=== PATIENT | female | born 1960 | race Caucasian/White ===

== ENCOUNTER 2023-02-10 07:47 | Emergency (ER) | payer OTHER, SELFPAY ==
[2023-02-10 07:56] VITALS: BP 148/92; PULSE 83; RESP 18; TEMP 37; O2SAT 99
--- NOTE | 2023-02-10 08:17 | ED_ITS ---
HPI - Dental/Oral General Chief complaint: Dental/Oral Stated complaint: thinks tooth is infected Time Seen by Provider: 02/10/23 08:04 History of Present Illness HPI Narrative: Patient is a 62-year-old female who presents ER with right lower jaw swelling. Worsening over the last 2 days. Associated pain. No drainage. No fevers chills or sweats. No difficulty breathing or swallowing. Related Data Allergies Allergy/AdvReac Type Severity Reaction Status Date / Time allantoin [From Orajel] Allergy Swelling Verified 02/10/23 08:03 benzalkonium chloride Allergy Swelling Verified 02/10/23 08:03 [From Orajel] benzocaine [From Orajel] Allergy Swelling Verified 02/10/23 08:03 carbamide peroxide Allergy Swelling Verified 02/10/23 08:03 [From Orajel] tramadol Allergy Depression Verified 02/10/23 08:03 zinc chloride [From Orajel] Allergy Swelling Verified 02/10/23 08:03 Review of Systems Constitutional: Constitutional: Denies chills and Denies fever(s) ENT: Comments: Right lower jaw swelling and pain. Positive dental pain. [facility] Past Medical History Medical History (Updated 02/10/23 @ 17:06 by Tex Hernandez MD) Diabetes Hyperlipidemia Hypertension Exam Narrative: GENERAL: Well-appearing, well-nourished, and in no acute distress. HEAD: Normocephalic, atraumatic. ENT: Right lower jaw swelling with tenderness around tooth 30. No drainable abscess. Mucous membranes moist. Normal posterior oropharynx. NECK: Supple. SKIN: Warm, dry, no rash. NEURO: Alert and oriented x3. PSYCH: Normal mood and affect. Course Course Emergency Course: Discharge home with antibiotic and pain medication Vital Signs Vital signs: Vital Signs Temperature 98.6 F 02/10/23 07:56 Pulse Rate 83 02/10/23 07:56 Respiratory Rate 18 02/10/23 07:56 Blood Pressure 148/92 H 02/10/23 07:56 Pulse Oximetry 99 02/10/23 07:56 Oxygen Delivery Room Air 02/10/23 07:56 Temperature 98.6 F 02/10/23 07:56 Pulse Rate 83 02/10/23 07:56 Respiratory Rate 18 02/10/23 07:56 Blood Pressure 148/92 H 02/10/23 07:56 Pulse Oximetry 99 02/10/23 07:56 Oxygen Delivery Room Air 02/10/23 07:56 Discharge Plan Discharge Clinical Impression: Toothache Patient Disposition: Home, Self-Care Condition: Stable Instructions: Antibiotic Form, Toothache (ED) Additional Instructions: Return to the ER if you cannot breathe, you cannot swallow, or you have additional concerns. Follow-up with your dentist for definitive evaluation and treatment. Prescriptions: New amoxicillin-pot clavulanate 875-125 mg tablet 1 tablet PO Q12H Qty: 20 0RF oxycodone-acetaminophen [Percocet] 5-325 mg tablet 1 tablet PO Q6H PRN (Reason: pain) Qty: 10 0RF Follow-up/Referrals: UNKNOWN,DOCTOR [Non-Staff] - 1 Week Stand Alone Forms: Work/School Release IP
== END 2023-02-10 08:23 | disposition home or self-care (01) ==
LOC: ANHED 08:19
PROVIDERS: Emergency Provider Emergency Medicine; PCP Internal Medicine
DX: K08.89 Other specified disorders of teeth and supporting structures (principal); I10 Essential (primary) hypertension; E11.9 Type 2 diabetes mellitus without complications; E78.5 Hyperlipidemia, unspecified
CPT/HCPCS: 99283

== ENCOUNTER 2023-09-18 09:45 | Outpatient (RCR) | payer OTHER, SELFPAY ==
[2023-05-24 15:55] VITALS: BP 112/68; PULSE 70; RESP 18; O2SAT 97
== END 2023-09-18 23:59 | disposition home or self-care (01) ==
LOC: ANHCPREHAB 09:45
PROVIDERS: PCP Internal Medicine
DX: Z95.5 Presence of coronary angioplasty implant and graft (principal)
CPT/HCPCS: 93798

== ENCOUNTER 2023-11-13 10:00 | Outpatient (RCR) | payer OTHER, SELFPAY ==
[2023-09-21 00:03] VITALS: BP 112/68; PULSE 70; RESP 18; O2SAT 97
== END 2023-11-13 15:20 | disposition home or self-care (01) ==
LOC: ANHCPREHAB 10:00
PROVIDERS: PCP Internal Medicine
DX: Z95.5 Presence of coronary angioplasty implant and graft (principal)
CPT/HCPCS: 93798

== ENCOUNTER 2024-09-17 12:05 | Emergency (ER) | payer OTHER, SELFPAY ==
[2024-09-17 12:01] VITALS: BP 151/83; PULSE 76; RESP 16; TEMP 36.8; O2SAT 98
--- NOTE | 2024-09-17 12:43 | PC.NURSE ---
Pt used call light to state her nose had begun bleeding again. Nasal clamp was applied by this RN. Pt requested for BP to be rechecked, BP was rechecked per pts request.
[2024-09-17 12:44] VITALS: BP 134/75
--- OUTSIDE RECORDS SUMMARY | 2024-09-17 13:12 | XMS_ITS | Encounter Summary ---
Author Organization [facility] Address [address] [place] [address] Care Team Providers Care Fun House Attendant Name Role Phone Becky Mccarthy MD Primary Care Provider [phone] Alok Andrew MD Unavailable [phone] Encounter Details Date Type Department Care Team (Late st Contact Info) Description 04/02/2023 Telephone [facility] Cardiac Windows Admin [address] [place] [address] Narciso Alfonso, RN Social History Tobacco Use Types Packs/Day Years Used Date Smoking Tobacco: Former Cigarettes 0.3 25 AUDIT-C Answer Date Recorded Q1: How often do you have a drink containing alc ohol? Monthly or less 03/28/2023 Q2: How many drinks containi ng alcohol do you have on a typical day when you are drinking? 1 or 2 03/28/2023 Q3: How often do you have si x or more drinks on one occasion? Never 03/28/2023 Personal Safety Answer Date Recorded Have you ever been in or are you currently in a harmful physical or emotional relationship or is someone making you feel afraid or unsafe? 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 A copy of the angiography diagram, post PCI EKG, stent card,care notes handout on the angioplasty/PCI, heart healthy diet, and cardiac rehab pamphlet is being mailed to the patient. The procedure, coronary anatomy, stent placement, and/or other findings discussed. Cardiac rehab discussed, DAPT discussed, importance of compliance, and instructions that only the plugger man can discontinue to hold the medication were given. Typical and atypical signs and symptoms of angina were discussed, and patient was instructed to utilize 911 and EMS services should they occur. Instructed to keep the stent card in their wallet or to keep with them at all times. Time was given for questions. Patient voiced understanding. documented in this encounter Plan of Treatment Not on file documented as of this encounter Visit Diagnoses Not on filedocumented in this encounter Care Teams Fun House Attendant Relationship Specialty Start Date End Date Becky Mccarthy MD [address] [place] [address] PCP - General Internal Medicine 09/20/22 Alok Andrew MD [address] [place] [address] Referring Physician Ophthalmology 11/06/23 documented as of this encounter
--- OUTSIDE RECORDS SUMMARY | 2024-09-17 13:13 | XMS_ITS | Referral Summary ---
Author Organization [facility] Address [address] [place] [address] Care Team Providers Care Cigar Maker Name Role Phone Becky Mccarthy MD Primary Care Provider [phone] Alok Andrew MD Unavailable [phone] Allergies Active Allergy Reactions Criticality Noted Date Comments Rosuvastatin Muscle pain Medium 08/19/2024 Tramadol Mental status changes High 12/31/2022 Medications baclofen (LIORESAL) 10 mg tablet Take 1 tablet (10 mg total) by mouth 4 (four) times a day as needed 11/15/2022 Active lisinopriL (PRINIVIL,ZESTR IL) 20 mg tablet Take 1 tablet (20 mg total) by mouth daily 11/23/2022 Active metFORMIN XR (GLUCOPHAGE XR) 750 mg 24 hr tablet Take 1 tablet (750 mg total) by mouth 2 (two) times a day 11/23/2022 Active metoprolol XL (TOPROL-XL) 25 mg extended release tablet Take 1 tablet (25 mg total) by mouth daily 11/23/2022 Active potassium chloride ER 20 mEq CR tablet Take 1 tablet (20 mEq total) by mouth daily 11/16/2022 Active rosuvastatin (CRESTOR) 40 mg tablet Take 1 tablet (40 mg total) by mouth nightly 11/23/2022 Active allopurinoL (ZYLOPRIM) 100 mg tablet Take 1 tablet (100 mg total) by mouth daily 11/23/2022 Active hydroCHLOROthia zide (HYDRODIURIL) 25 mg tablet Take 1 tablet (25 mg total) by mouth daily Active hydroCHLOROthia zide (MICROZIDE) 12.5 mg capsule Take 1 capsule (12.5 mg total) by mouth As needed for edema Active gabapentin (NEURONTIN) 300 mg capsule Take 2 capsules (600 mg total) by mouth 2 (two) times a day 01/14/2023 Active OneTouch Ultra Test strip daily 03/18/2023 Active OneTouch Ultra2 Meter misc daily 03/18/2023 Active cholecalciferol (VITAMIN D-3) 2000 unit tablet Take 1 tablet every day by oral route as directed. Active OneTouch Delica Plus Lancet 33 gauge misc daily 03/18/2023 Active Eliquis 5 mg tablet TAKE 1 TABLET BY MOUTH TWICE DAILY 180 tablet 1 04/20/2024 Active evolocumab (Repatha SureClick) 140 mg/mL pen injector Inject 1 mL (140 mg total) under the skin every 14 (fourteen) days 6 mL 1 05/18/2024 Active nitroglycerin (NITROSTAT) 0.[address] 1 tablet (0.4 mg total) under the tongue every 5 (five) minutes as needed for chest pain 25 tablet 05/18/2024 Active aspirin 81 mg enteric coated tablet Take 1 tablet (81 mg total) by mouth daily 90 tablet 3 05/18/2024 Active Active Problems Problem Noted Date Diagnosed Date Other thrombophilia 05/18/2024 CAD in [place] artery 03/28/2023 Abnormal stress test 12/31/2022 Essential hypertension, benign 12/31/2022 Mixed hyperlipidemia 12/31/2022 Coronary artery disease of n ative artery of [place] heart with stable angina pectoris 12/31/2022 Paroxysmal atrial fibrillation 12/31/2022 Obesity (BMI 35.0-39.9 without comorbidity) 12/09 Immunizations Immunization Administration Dates Next Due DT 01/12/1995 Influenza, Trivalent, Preservative Free, Intramu scular 02/12/1997 Social History Tobacco Use Types Packs/Day Years Used Date Smoking Tobacco: Former Cigarettes 0.3 25 Tobacco Cessation:Counseling Given: Not Answered AUDIT-C Answer Date Recorded Q1: How often [...] on file 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 Gender Identity Not on file Sexual Orientation Not on file Last Filed Vital Signs Vital Sign Reading Time Taken Comments Blood Pressure 134/76 05/18/2024 3:15 PM RAIL CAR MECHANIC Pulse 71 05/18/2024 3:15 PM RAIL CAR MECHANIC Temperature 36.8 C (98.2 F) 03/29/2023 11:14 AM CDT Respiratory Rate 16 03/29/2023 11:14 AM CDT Oxygen Saturation 98% 04/24/2023 9:47 AM RAIL CAR MECHANIC Inhaled Oxygen Concentration - - Weight 89.2 kg (196 lb 9.6 oz) 05/18/2024 3:15 P M RAIL CAR MECHANIC Height 165.1 cm (5' 5 ) 05/18/2024 3:15 PM RAIL CAR MECHANIC Body Mass Index 32.72 05/18/2024 3:15 PM RAIL CAR MECHANIC Plan of Treatment Not on file Medical Devices Implanted Type Area Hospice Rn Device Identifier Shelf Expiration Date Model / Serial / Lot Medtronic Card Vasc Surgery 3.0 X 12mm [place] [facility] Coronary Stent [id number] - [id number] Implanted:Qty: 1 on 03/28/2023 by Los Cole MD at [facility] Medtronic Card Vasc Surgery 02/11/2026 [id number] / / [id number] [employer] Angio-Seal Vip 6fr Closere Device [id number] - [id number] Implanted:Qty: 1 on 03/28/2023 by Los Cole MD at [facility] [employer] 09/08/2023 [id number] / / [id number] Insurance Advance Directives For more information, please contact: [phone] * Full Code (Latest Code Status on File) Date Activated Date Inactivated Comments 03/28/2023 12:36 PM 03/29/2023 6:40 PM Care Teams Cigar Maker Relationship Specialty Start Date End Date Becky Mccarthy MD [address] [place] [address] PCP - General Internal Medicine 09/20/22 Alok Andrew MD [address] [place] [address] Referring Physician Ophthalmology 11/06/23
--- OUTSIDE RECORDS SUMMARY | 2024-09-17 13:13 | XMS_ITS | Data Portability ---
Author Organization [place] - [facility] OFFICE Address [address] [place] [address] Care Team Providers Care Vp Outcomes Name Role Phone FIGUEROA CABALLERO Primary Care Provider Assessment Encounter Date Assessment Date Assessment LastModified by Organization Details LastModified Time 08/24/2020 08/24/2020 Discussed with patient findings, diagnosis, and prognosis. Discussed evaluation and treatment options including risks and benefits with patient, and patient expressed understanding. The following interventions were recommended: heart healthy low-fat, low-sodium diet, continue regular exercise, 20 pound weight loss, monitor and record daily weight, continue current medications, and medical follow-up as noted. [email or web address] Not available 08/23/2020 09:37:14 06/14/2021 06/14/2021 Discussed with patient findings, diagnosis, and prognosis. Discussed evaluation and treatment options including risks and benefits with patient, and patient expressed understanding. The following interventions were recommended: heart healthy low-fat, low-sodium diet, continue regular exercise, 20 pound weight loss, monitor and record daily weight, continue current medications, and medical follow-up as noted. [email or web address] Not available 04/25/2021 16:51:03 08/23/2021 08/23/2021 Discussed with patient findings, diagnosis, and prognosis. Discussed evaluation and treatment options including risks and benefits with patient, and patient expressed understanding. The following interventions were recommended: heart healthy low-fat, low-sodium diet, continue regular exercise, 20 pound weight loss, monitor and record daily weight, continue current medications, and medical follow-up as noted. [email or web address] Not available 08/23/2021 15:30:16 03/14/2022 03/14/2022 Discussed with patient findings, diagnosis, and prognosis. Discussed evaluation and treatment options including risks and benefits with patient, and patient expressed understanding. The following interventions were recommended: heart healthy low-fat, low-sodium diet, avoid strenuous exercise pending completion of cardiovascular evaluation,20 pound weight loss, monitor and record daily weight, continue current medications, and medical follow-up as noted. [email or web address] Not available 03/14/2022 17:34:07 05/30/2022 05/30/2022 Discussed with patient findings, diagnosis, and prognosis. Discussed evaluation and treatment options including risks and benefits with patient, and patient expressed understanding. The following interventions were recommended: heart healthy low-fat, low-sodium diet, avoid strenuous exercise pending completion of cardiovascular evaluation,20 pound weight loss, monitor and record daily weight, continue current medications, and medical follow-up as noted. [email or web address] Not available 05/30/2022 12:06:38 Plan of Treatment Reminders Order Date Submit Date Provider Last Modified By Organization Details Last Modified Time Details Appointments None recorded. Lab None recorded. Referral None recorded. Procedures None recorded. Surgeries None recorded. Imaging None recorded. Medication Orders rosuvastati n 40 mg tablet 2021 [facility] #[id number], [address], [place], [id number], 12:29:14 nitroglycer in 0.4 mg sublingual tablet 2021 [facility] #88262, [address], [place], [id number], 12:29:15 Eliquis 5 mg tablet 2021 [facility] #[id number], [address], [place], [id number], 12:29:14 amlodipine 10 mg tablet 2021 [facility] #49451, [address], [place], [id number], 12:29:15 Repatha SureClick 140 mg/mL subcutaneou s pen injector 2021 [facility] #32977, [address], [place], [place], [id number], 12:29:16 rosuvastati n 40 mg tablet 2021 [facility] #31917, [address], [place], [place], [id number], 17:37:19 metoprolol succinate ER 25 mg tablet,exte nded release 24 hr 2021 [facility] #90840, [address], [place], [place], [id number], 17:37:21 amlodipine 10 mg tablet 2021 [facility] #72027, [address], [place], [place], [id number], 17:37:20 Patient TargetsNo targets recorded. Patient Instructions Encounter Date Encounter Id Patient Instructions Last Modified By Organization Details Last Modified Time 08/24/2020 [id number] sleep apnea: car e instructions [email or web address] Not available 08/24/2020 20:37:09 06/14/2021 [id number] sleep apnea: car e instructions Not available 06/14/2021 16:22:23 dizziness: care instructions [email or web address] Not available 06/14/2021 16:22:23 08/23/2021 [id number] sleep apnea: car e instructions [email or web address] Not available 08/23/2021 16:00:54 dizziness: care instructions Not available 08/23/2021 16:00:54 03/14/2022 [id number] sleep apnea: car e instructions [email or web address] Not available 03/14/2022 17:37:14 dizziness: care instructions [email or web address] Not available 03/14/2022 17:37:13 05/30/2022 [id number] dizziness: care instructions [email or web address] Not available 05/30/2022 12:29:06 sleep apnea: car e instructions [email or web address] Not available 05/30/2022 12:29:07 Reason for Referral None Reported. Results Created Date Observation Date Name Description Value Unit Range Abnormal Flag Note LastModifiedBy Organization Detail LastModifiedTime 08/26/1908/24/2020 elect rocar diogr am No observ ation record ed. [email or web address] Not Available 2020 12:22:25 06/19/19 22 06/14/2021 elect rocar diogr am No observ ation record ed. [email or web address] Not Available 2021 11:35:07 08/03/19 22 08/02/2021 , [facility] ardio gram No observ ation record ed. [facility] [address] [place] [address] Dr Pinedo, [place], [address], 08/05/2021 15:37:50 08/15/19 22 08/02/2021 US, echo ardio gram No observ ation record ed. [email or web address] Not Available 2021 12:14:12 03/15/20 22 03/14/2022 elect rocar diogr am No observ ation record ed. [email or web address] Not Available 2021 14:02:01 04/11/20 22 03/29/2022 exerc ise stres s test No observ ation record ed. [email or web address] Not Available 2021 15:34:46 05/28/20 22 04/06/2022 US, carot id arter y No observ ation record ed. [email or web address] Not Available 2021 12:31:06 Result Notes None recorded. Problems Name Problem SNOMED Code Status Onset Date Resolution Date Notes Provider Name and Address Organization Details Recorded Time Dizzines s 870841278 Active 2021 Khanh garrison [facility] 16:12:38 Ischemic stroke 688567223 Active 2016 Maria Teresa garrison [place] - [facility] 7 14:32:13 Benign hyperten mariusz 13238255 Completed 201606/14/2017 Odetterufina Campuzanos [place], [place] - [facility] 8 09:25:25 Diabetes mellitus 00114653 Completed 201606/14/2017 Odette Campuzanos [place], [place] - [facility] 8 09:25:34 Arthriti s 2673201 Active 2016 Maria Teresa Jackson [place], [place] - [facility] 7 14:34:31 Goiter 0303868 Active 2016 Hala Manuel [place] - [facility] 7 14:34:39 Hypercho lesterol emia 60138608 Completed 201606/14/2017 Odette garrison, [place] - [facility] 8 09:25:28 Disorder of thyroid gland 38718176 Active 2016 [facility], [place] - [facility] 7 10:55:26 Syncope 755928997 Active 2016 [facility] [place] - [facility] 7 10:56:04 Cramp in lower limb 952500074 Active 2016 [facility] [place] [facility] 7 10:56:29 Headache 27497692 Active 2016 [facility] [place] [facility] 7 10:56:38 Chest pain 79153882 Active 2016 [facility] [place] [facility] 7 10:57:00 Excessiv e belching 226083004 Active 2016 [facility] [place] [facility] 7 11:10:40 Palpitat ions 53243968 Active 2016 [facility] [place] [facility] 7 11:38:33 Gastroes ophageal reflux disease 064330775 Active 2016 Celia Maya [place] - [facility] 7 16:31:22 Cerebrov ascular accident 677268937 Active [address] [facility] 7 16:32:04 Dyslipid emia 361959416 Active [address] [facility] 8 09:25:03 Type 2 diabetes mellitus without complica tion 866020744 Active [address] [facility] 8 09:25:12 [facility] hyperten mariusz 53388935 Active 2017 Odette Marie [facility] 8 09:25:22 Paroxysm al atrial fibrilla tion 881353947 Active 2017 Khanh Madrid [facility] 8 18:07:37 Coronary arterios clerosis 25431535 Active 2017 [facility] 12/03/16 : Two-vesse l coronary artery disease, RCA 60-75%. Kate Tristan [facility] 8 11:07:49 Obstruct gracia sleep apnea syndrome 30562527 Active [address] [facility] 0 11:17:18 Problem Notes None recorded. Procedures Surgical History Date Name Laterality Status Provider Name and Address Organization Details Recorded Time Removal of thyroid completed Celia Maya [facility] 11/02/2016 17:03:35 Hysterectomy completed [facility] 11/09/2016 11:03:05 Appendectomy completed [facility] 11/09/2016 11:03:14 Back Surgery completed [facility] 11/09/2016 11:03:27 Imaging Results Imaging Date Name Status LastModified by Organization Details LastModified Time 08/24/2020 electrocardiogram completed [email or web address] Informa tion not available 08/25/2020 12:22:25 06/14/2021 electrocardiogram completed Informa tion not available 06/19/2021 11:35:07 08/02/2021 US, echocardiogram completed [facility] [address], [place], [address], 08/05/2021 15:37:50 08/02/2021 US, echocardiogram completed Inform ation not available 08/14/2021 12:14:12 03/14/2022 electrocardiogram completed Informa tion not available 03/15/2022 14:02:01 03/29/2022 exercise stress test completed ruse Info rmation not available 04/11/2022 15:34:46 04/06/2022 US, carotid artery completed Inform ation not available 05/28/2022 12:31:06 Procedure Notes None recorded. Medical Equipment None Reported. Allergies Allergen ID Allergen Name Allergen Category Reaction Reaction Severity Criticality Documentation Date Start Date Code Code System Note Provider Name and Address Organization Details Recorded Time 4576 tramadol medicatio n Not available Not available Not available 11/30/2016 76137 RxNorm Rossana Day [place], [place] - [facility] 7 12:28:58 Medications Name Sig Start Date Stop Date Status Note LastModified by Organization Details LastModified Time cyclobenz aprine 10 mg tablet TAKE ONE TABLET BY MOUTH TWICE DAILY NEEDED active Not Available Not Available No t Available atorvasta tin 40 mg tablet Take 1 tablet every day by oral route. 12/24 completed Not Available Not Available Not Available atorvasta tin 80 mg tablet TAKE 1 TABLET BY MOUTH AT BEDTIME 04/08 completed pt. no longer takes Not Available Not Available Not Available Tylenol 500 mg capsule Take 2 tablets by oral route as needed. 06/14 completed Not Available Not Available Not Available cefuroxim e axetil 250 mg tablet 08/24 completed pt. no longer takes Not Available Not Available Not Available tizanidin e 2 mg tablet 11/17 completed Not Available Not Available Not Available aspirin 325 mg tablet Take 1 tablet every day by oral route. 01/22 completed per Shari, pt will start 81mg soon Not Available Not Available Not Available sulfameth oxazole 400 mg-trimet hoprim 80 mg tablet active Not Available Not Available No t Available meloxicam 15 mg tablet pt cuts pill in half; 11/17 completed Not Available Not Available Not Available FreeStyle Lancets 28 gauge 12/10 completed Not Available Not Available Not Available lisinopri l 20 mg tablet TAKE 1 TABLET BY MOUTH EVERY DAY active Not Available Not Available No t Available clopidogr el 75 mg tablet TAKE 1 TABLET BY MOUTH EVERY DAY 11/17 completed Not Available Not Available Not Available amlodipin e 5 mg tablet TAKE 1 TABLET BY MOUTH EVERY DAY 05/30 completed Not Available Not Available Not Available allopurin ol 100 mg tablet TAKE 1 TABLET BY MOUTH EVERY DAY active Not Available Not Available No t Available meloxicam 7.5 mg tablet Take 1 tablet twice a day by oral route. 11/17 completed Not Available Not Available Not Available potassium chloride ER 20 mEq tablet,ex tended release(p art/cryst ) TAKE 1 TABLET BY MOUTH DAILY active Not Available Not Available No t Available magnesium oxide 400 mg (241.3 mg magnesium ) tablet TAKE 1 TABLET BY MOUTH EVERY DAY active Not Available Not Available No t Available aspirin 325 mg tablet,de layed release 12/10 completed Not Available Not Available Not Available baclofen 10 mg tablet TAKE 1 TABLET BY MOUTH FOUR TIMES DAILY NEEDED active Not Available Not Available No t Available amlodipin e 10 mg tablet TAKE 1 TABLET BY MOUTH EVERY DAY active Not Available Not Available No t Available metformin 1,000 mg tablet Take 1 tablet twice a day by oral route. 08/24 completed pt. no longer takes 0 FH Not Available Not Available Not Available hydrochlo rothiazid e 12.5 mg capsule TAKE 1 CAPSULE BY MOUTH EVERY DAY active Not Available Not Available No t Available nitroglyc hung 0.4 mg sublingua l tablet Place 1 tablet(s ) as needed by sublingu al route. active Not Available Not Available No t Available gabapenti n 300 mg capsule TAKE ONE CAPSULE BY MOUTH THREE TIMES DAILY active Not Available Not Available No t Available hydrochlo rothiazid e 25 mg tablet TAKE ONE TABLET BY MOUTH DAILY active Not Available Not Available No t Available metoprolo l succinate ER 25 mg tablet,ex tended release 24 hr TAKE 1 TABLET BY MOUTH EVERY DAY active Not Available Not Available No t Available ergocalci ferol (vitamin D2) 1,250 mcg (50,000 unit) capsule TAKE 1 CAPSULE BY MOUTH EVERY 15 DAYS 06/14 completed Not Available Not Available Not Available vitamin B complex and vitamin C no.20-fol ic acid 1 mg capsule Take 1 capsule every day by oral route as directed . active Not Available Not Available No t Available [place] 5 mg-325 mg tablet Take 1 tablet twice a day by oral route as needed. 11/12 completed Not Available Not Available Not Available diazepam 5 mg tablet TAKE ONE TABLET BY MOUTH EVERY NIGHT AT BEDTIME NEEDED active Not Available Not Available No t Available One Touch Lancets 30 05/21 completed Not Available Not Available Not Available tobramyci n 0.3 %-dexamet hasone 0.1 % eye drops,andriy pension active Not Available Not Available Not Available neomycin- polymyxin -hydrocor t 3.5 mg-10,000 unit/mL-1 % ear drops,andriy p 05/21 completed Not Available Not Available Not Available One Touch test strips 12/09 completed Not Available Not Available Not Available Co Q-10 100 mg capsule Take 1 capsule every day by oral route as directed . active Not Available Not Available No t Available metformin ER 750 mg tablet,ex tended release 24 hr TAKE 1 TABLET BY MOUTH TWICE DAILY FOR 90 DAYS active Not Available Not Available No t Available rosuvasta tin 20 mg tablet TAKE 1 TABLET BY MOUTH EVERY DAY 12/09 completed Not Available Not Available Not Available rosuvasta tin 40 mg tablet Take 1 tablet every day by oral route at bedtime. active Not Available Not Available No t Available amlodipin e 5 mg-atorva statin 10 mg tablet Take 1 tablet twice a day by oral route. 11/09 completed Not Available Not Available Not Available Arnica 30x soluble tablet Take 1 tablet every day by oral route as directed . 06/14 completed Not Available Not Available Not Available potassium chloride 20 meq 01/22 completed Not Available Not Available Not Available Aspir-81 qd 12/09 completed Not Available Not Available Not Available Valium PRN 05/21 completed Not Available Not Available Not Available Vitamin B6 12/09 completed Not Available Not Available Not Available ranolazin e ER 500 mg tablet,ex tended release,1 2 hr 08/18 completed pt. no longer takes 0 FH Not Available Not Available Not Available hydrochlo rothiazid e 12.5 mg tablet 05/21 completed Not Available Not Available Not Available Janumet 50 mg-1,000 mg tablet 12/10 completed Not Available Not Available Not Available FreeStyle Lite Meter kit 12/10 completed Not Available Not Available Not Available ranolazin e ER 1,000 mg tablet,ex tended release,1 2 hr 08/18 completed pt. no longer takes 0 FH Not Available Not Available Not Available Vitamin D3 50 mcg (2,000 unit) tablet Take 1 tablet every day by oral route as directed . active Not Available Not Available No t Available krill oil 500 mg capsule Take 1 capsule every day by oral route as directed . 12/24 completed Not Available Not Available Not Available Algal-900 DHA 300 mg capsule Take by oral route. 06/14 completed Not Available Not Available Not Available Xarelto 20 mg tablet Take 1 tablet every day by oral route in the evening. 11/17 completed Not Available Not Available Not Available OneTouch Verio test strips USE TO TEST THREE TIMES DAILY active Not Available Not Available No t Available OneTouch Delica Lancets 30 gauge 05/21 completed Not Available Not Available Not Available Eliquis 5 mg tablet TAKE 1 TABLET BY MOUTH TWICE DAILY DIRECTED 2021 active pt took 4 sample bottles 12/05/21 nj Not Available Not Available Not Available Eliquis 2.5 mg tablet 12/24 completed Not Available Not Available Not Available potassium chloride ER 20 mEq tablet,ex tended release Take 1 tablet every day by oral route as directed . active Not Available Not Available No t Available OneTouch Verio Meter 05/21 completed Not Available Not Available Not Available Repatha SureClick 140 mg/mL subcutane ous pen injector active Not Available Not Available Not Available Fish Oil 1,000 mg (120 mg-180 mg) capsule Take 2 capsules twice a day by oral route. 08/23 completed Not Available Not Available Not Available Adult Aspirin Regimen 81 mg tablet,de layed release Take 1 tablet every day by oral route. active Not Available Not Available No t Available Eliquis DVT-PE Treatment 30-Day Starter 5 mg (74 tablets) in dose pack 12/24 completed Not Available Not Available Not Available Flucelvax Quad 2337-9134 (PF) 60 mcg (15 mcg x 4)/0.5 mL IM syringe 11/17 completed Not Available Not Available Not Available Alive Once Daily Women 50 Plus 12/09 completed Take 1 tab every day by oral route. Not Available Not Available Not Available OneTouch Delica Plus Lancet 33 gauge USE TO TEST THREE TIMES DAILY active Not Available Not Available No t Available Fluzone Quad (PF) 60 mcg (15 mcg x 4)/0.5 mL IM syringe 06/14 completed Not Available Not Available Not Available Vitals Date Recorded Body height Body mass index (BMI) Body weight Heart rate Respiratory rate Oxygen saturation Oxygen saturation in Arterial blood by Pulse oximetry Body temperature Systolic blood pressure Diastolic blood pressure Systolic blood pressure Diastolic blood pressure Provider Name and Address Organization Details Last Updated DateTime 1 167.64 cm 32.6 kg/m2 10571.6 6 g 70 /min 18 /min 99 % 99 % 97.7 [degF] 120 mm[Hg] 74 mm[Hg] 118 mm[Hg] 70 mm[Hg] [facility] 1 14:22:26 Date Recorded Body height Oxygen saturation Oxygen saturation in Arterial blood by Pulse oximetry Heart rate Body mass index (BMI) Body weight Systolic blood pressure Diastolic blood pressure Provider Name and Address Organization Details Last Updated DateTime 2 167.64 cm 98 % 98 % 80 /min 33.9 kg/m2 04220.4 g 118 mm[Hg] 66 mm[Hg] [facility] 2 15:20:36 Date Recorded Body height Body mass index (BMI) Body weight Heart rate Oxygen saturation Oxygen saturation in Arterial blood by Pulse oximetry Systolic blood pressure Diastolic blood pressure Provider Name and Address Organization Details Last Updated DateTime 2 167.64 cm 33.6 kg/m2 61795.2 1 g 74 /min 97 % 97 % 144 mm[Hg] 78 mm[Hg] [facility] 2 14:51:36 Date Recorded Body height Body mass index (BMI) Body weight Heart rate Respiratory rate Oxygen saturation Oxygen saturation in Arterial blood by Pulse oximetry Systolic blood pressure Diastolic blood pressure Provider Name and Address Organization Details Last Updated DateTime 2 167.64 cm 33.1 kg/m2 35336.4 4 g 78 /min 16 /min 97 % 97 % 114 mm[Hg] 80 mm[Hg] Wayne Navdeep [facility] 2 16:50:34 Date Recorded Body height Body mass index (BMI) Body weight Heart rate Respiratory rate Oxygen saturation Oxygen saturation in Arterial blood by Pulse oximetry Systolic blood pressure Diastolic blood pressure Provider Name and Address Organization Details Last Updated DateTime 2 167.64 cm 34.5 kg/m2 92899.7 7 g 72 /min 16 /min 97 % 97 % 124 mm[Hg] 82 mm[Hg] Wayne Sethi [facility] 2 11:38:33 Social History Question Answer Notes LastModified by Organizat ion Details LastModified Time Tobacco Smoking Status Former Smoker Krsiti Angel [facility] 11/09/2016 11:00:38 What Is Your Level Of Alcohol Consumption? Occasional [email or web address] Information not available 11/09/2016 What Is Your Level Of Caffeine Consumption? Occasional Information not available 11/09/2016 How Much Tobacco Do You Chew? None [email or web address] Information not available 11/09/2016 What Type Of Diet Are You Following? CARDIAC Diabets, Low Fat Diet [email or web address] Information not available 11/09/2016 Which Illicit Or Recreational Drugs Have You Used? No [email or web address] Information not available 11/09/2016 Do You Or Have You Ever Used E-cigarettes Or Vape? 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 Alone [email or web address] Information not available 11/09/2016 Marital Status Single Informatio n not available 11/09/2016 What Was The Date Of Your Most Recent Tobacco Screening? 12/24/2018 Information not available 01/01/2019 How Many Children Do You Have? 0 [email or web address] Information not available 11/09/2016 Do You Or Have You Ever Used Smokeless Tobacco? Former Smokeless Tobacco User Information not available 08/17/2019 How Much Tobacco Do You Smoke? No [email or web address] Information not available 11/09/2016 General Stress Level Low [email or web address] Information not available 11/09/2016 Sex: Unknown Functional Status Question Answer Note LastModified by Organization D etails LastModified Time What is your exercise level? None [email or web address] Information not available 11/09/2016 Mental Status None recorded. Family History Relationship Description Onset Age of this Age Resolved Age Notes LastModified by Organization Details LastModified Time Father Heart disease [email or web address] Not available 2016 10:58:37 Father Hypercholest erolemia [email or web address] Not available 2016 11:00:05 Father Transient cerebral ischemia [email or web address] Not available 2016 11:00:31 Maternal Uncle Myocardial infarction [email or web address] Not available 11/09 10:58:55 Maternal Uncle Diabetes mellitus [email or web address] Not available 2016 10:59:27 Maternal Uncle Hypertensive disorder [email or web address] Not available 2016 10:59:54 Maternal Uncle Cerebrovascu lar accident [email or web address] Not available 07/2016 11:00:18 Paternal Grandmother Diabetes mellitus Not available 2016 10:59:27 Paternal Aunt Diabetes mellitus [email or web address] Not available 2016 10:59:27 Mother Hypercholest erolemia [email or web address] Not available 2016 11:00:05 Medical History Condition Response Diabetes Y Thyroid Disease Y Myocardial Infarction N Hyperlipidemia Y Valvular Heart Disease N Stroke Y Depression Y Pacemaker N Peripheral Arterial Disease N TIA N Sleep Apnea N High Cholesterol Y Warfarin Management N Neurologic Disorder N Valvular Abnormalities N Heart Disease Y Hypertension Y Gynecological HistoryNo gynecological history recorded. Obstetrics History GPAL:G 0 P 0 0 0 0 Past Encounters Encounter ID Performer Location Encounter Start Date Encounter Closed Date Diagnosis/Indication Diagnosis SNOMED-CT Code Diagnosis ICD10 Code Diagnosis Note [id number] Carlos Springer MD [facility] [address] [place] [address] 11/09/2016 10:37:17 11/09/2016 12:25:59 Diabetes mellitus 44665280 E11.9 Controlled . Managed by Primary Benign hypertension 1072 5009 I10 Ischemic stroke 87345700 2 I63.9 Patient on ASA 325 Hypercholesterolemia 136 53038 E78.00 F/u FLP results from PCP. Continue statin. Palpitations [id number] R0 0.2 Will obtain Holter. Atypical chest pain 1025 22336 R07.89 Treadmill Myoview Stress test, has high [place] Risk score. Has Known CAD, or CAD risk equivalent . To look for any ischemia. [id number] Carlos Springer MD [facility] [place] [address] 11/30/2016 10:58:37 12/03/2016 17:57:39 Diabetes mellitus 42064815 E11.9 Controlled . Managed by Primary Benign hypertension 1072 5009 I10 Ischemic stroke 65990674 2 I63.9 Patient on ASA 325 Hypercholesterolemia 136 57104 E78.00 F/u FLP results from PCP. Continue statin. Palpitations 29086661 R0 0.2 Will obtain Holter. Atypical chest pain 1025 30126 R07.89 Treadmill Myoview Stress test was postive, The patient will be scheduled for left heart catheteriz ation, with coronary angiogram, and possible PTCA/Stent . The procedure was discussed with the patient, and risks, benefits, and alternativ e options were explained. The patient was given informatio n about heart catheteriz ation and interventi onal procedures . The patient agrees to proceed. [id number] Carlos Springer MD [facility] [address] [place] [address] 12/10/2016 14:33:44 12/10/2016 16:03:57 Diabetes mellitus 15582960 E11.9 Controlled . Managed by Primary Benign hypertension 1072 5009 I10 Ischemic stroke 59011604 2 I63.9 Patient on ASA 325 and PlavixWill be considered for Respect Esus trial Hypercholesterolemia 136 79298 E78.00 F/u FLP results from PCP. Continue statin. Palpitations 39848684 R0 0.2 Holter with short run of afib Atypical chest pain 1025 21925 R07.89 Treadmill Myoview Stress test was postive, cath showed mild Coronary Artery Disease Carlos Springer MD [facility] [place] [address] 06/14/2017 09:34:06 06/17/2017 10:22:31 Ischemic stroke 975236341 I63.9 Patient on ASA 325 and Plavix Palpitations 52755306 R0 0.2 Holter with short run of afib Atypical chest pain 1025 20376 R07.89 Treadmill Myoview Stress test was postive, cath showed mild Coronary Artery Disease Type 2 juju betes mellitus without complication 148970094 E11.9 Controlled . Managed by Primary Dyslipidemia 652806568 E 78.5 F/u FLP results from PCP. Continue statin.Nee ds to keep LDL less than 70, and HDL more than 40Will get fating lipids for follow up Essential hypertension 37365475 I10 with fair control Cerebrovas cular accident 652869604 I63.9 Syncope 753715298 R55 No recurrence [id number] Khanh [facility] [address] [place] [address] 11/12/2017 16:53:42 11/13/2017 13:59:46 Ischemic stroke 994098222 I63.9 Ischemic stroke (09/16/16). Patient on ASA 325 and Plavix. Palpitations 74719566 R0 0.2 Holter with short run of afib. Atypical chest pain 1025 32087 R07.89 Treadmill Myoview Stress test was postive, Cath showed mild Coronary Artery Disease 12/03/16: Two vessel coronary artery disease with significan t disease of the right coronary artery and diagonal branch of the left anterior descending ; however, The right coronary artery disease is moderate, 60-75%. ECHO: 09/18/16 There is mild concentric left ventricula r hypertroph y. Ejection fraction = 55-60%. Injection of contrast documented no interatria l shunt. Negative 2x bubble studies for right to left shunt. Highly mobile mass consistent with a torn or redundant chordae seen. There is mild mitral regurgitat ion. There is trace tricuspid regurgitat ion. No aortic stenosis. IVC appears normal in size. Grade I diastolic dysfunctio n, abnormal relaxation pattern. Given longer episode of intermitte nt chest pain 6 weeks ago, increased antiangina l regimen with increase to metoprolol succinate 25 mg qd 11/12/17. Chest pain stable overall otherwise. Began NTG SL prn. Type 2 juju betes mellitus without complication 609780378 E11.9 Controlled . Managed by Primary Dyslipidemia 004109081 E 78.5 F/u FLP results from PCP. Continue statin. Needs to keep LDL less than 70, and HDL more than 40 Will get fasting lipids for follow up. Essential hypertension 16282740 I10 Patient's blood pressure is {{well-con trolled* s omewhat well-contr olled not well-contr olled}} on present medical therapy. Patient is {{tolerati ng, without difficulty ,* having side effects with}} the current medication s. I have {{not made* made the following} } changes to the current regimen. {{ Patient is advised to maintain a blood pressure diary.}} Patient was advised to eat a low-sodium diet (2 grams sodium or less daily). Syncope 537430602 R55 No recurrence Paroxysmal atrial fibrillation 043112098 I48.0 Holter with short run of afib. No recurrence . On ASA, Plavix, metoprolol . [id number] Carlos Springer MD [facility] [address] [place] [address] 12/04/2017 12:41:44 12/12/2017 18:29:47 Atypical chest pain 098002294 R07.89 Treadmill Myoview Stress test was postive, Cath showed mild Coronary Artery Disease 12/03/16: Two vessel coronary artery disease with significan t disease of the right coronary artery and diagonal branch of the left anterior descending ; however, The right coronary artery disease is moderate, 60-75%. ECHO: 09/18/16 There is mild concentric left ventricula r hypertroph y. Ejection fraction = 55-60%. Injection of contrast documented no interatria l shunt. Negative 2x bubble studies for right to left shunt. Highly mobile mass consistent with a torn or redundant chordae seen. There is mild mitral regurgitat ion. There is trace tricuspid regurgitat ion. No aortic stenosis. IVC appears normal in size. Grade I diastolic dysfunctio n, abnormal relaxation pattern. Given longer episode of intermitte nt chest pain 6 weeks ago, increased antiangina l regimen with increase to metoprolol succinate 25 mg qd 11/12/17. Chest pain stable overall otherwise. Began NTG SL prn. Ischemic stroke 59730715 2 I63.9 Ischemic stroke (09/16/16). Patient on ASA 325 and Plavix. Palpitations 35581973 R0 0.2 Holter with short run of afib. Paroxysmal atrial fibrillation 361571084 I48.0 Holter with short run of afib. No recurrence . On ASA, Plavix, metoprolol . Type 2 juju betes mellitus without complication 923363216 E11.9 Controlled . Managed by Primary Dyslipidemia 793634900 E 78.5 F/u FLP results from PCP. Continue statin. Needs to keep LDL less than 70, and HDL more than 40 Will get fasting lipids for follow up. 12/04/17 Requesting FLP from [facility] Essential hypertension 58027878 I10 Patient's blood pressure is {{well-con trolled* s omewhat well-contr olled not well-contr olled}} on present medical therapy. Patient is {{tolerati ng, without difficulty ,* having side effects with}} the current medication s. I have {{not made* made the following} } changes to the current regimen. {{ Patient is advised to maintain a blood pressure diary.}} Patient was advised to eat a low-sodium diet (2 grams sodium or less daily). Syncope 960975029 R55 No recurrence [id number] Khanh [facility] [address] [place] [address] 01/22/2018 16:23:23 06/13/2018 10:32:13 Atypical chest pain 334614867 R07.89 Treadmill Myoview Stress test was postive, Cath showed mild Coronary Artery Disease 12/03/16: Two vessel coronary artery disease with significan t disease of the right coronary artery and diagonal branch of the left anterior descending ; however, The right coronary artery disease is moderate, 60-75%. ECHO: 09/18/16 There is mild concentric left ventricula r hypertroph y. Ejection fraction = 55-60%. Injection of contrast documented no interatria l shunt. Negative 2x bubble studies for right to left shunt. Highly mobile mass consistent with a torn or redundant chordae seen. There is mild mitral regurgitat ion. There is trace tricuspid regurgitat ion. No aortic stenosis. IVC appears normal in size. Grade I diastolic dysfunctio n, abnormal relaxation pattern. Given longer episode of intermitte nt chest pain previously , increased antiangina l regimen with increase to metoprolol succinate 25 mg qd 11/12/17. Chest pain stable overall otherwise. Began NTG SL prn. Considerat ion of PCI to RCA if medical management not adequate to control angina. Ischemic stroke 99271143 2 I63.9 Ischemic stroke (09/16/16). Patient on ASA 325 and Plavix. Palpitations 49041494 R0 0.2 Holter with short run of afib. Paroxysmal atrial fibrillation 636905234 I48.0 Holter with short run of afib. Holter 11/30/16 : NSR. No PVC's. Rare PAC's. No recurrence . On ASA, Plavix, metoprolol . Obtain 48 hour Holter. Type 2 juju betes mellitus without complication 607756210 E11.9 Controlled . Managed by Primary Dyslipidemia 358424903 E 78.5 Needs to keep LDL less than 70, and HDL more than 40 Will get fasting lipids for follow up. Had 11/18/17 Lipid: TC 149, TR 228, LDL 83, HDL 34. Increased atorvastat in to 80 mg qHS 01/22/18. Began fish oil 2 gm bid. FLP in 4 wks. Essential hypertension 85792656 I10 Patient's blood pressure is {{well-con trolled* s omewhat well-contr olled not well-contr olled}} on present medical therapy. Patient is {{tolerati ng, without difficulty ,* having side effects with}} the current medication s. I have {{not made* made the following} } changes to the current regimen. {{ Patient is advised to maintain a blood pressure diary.}} Patient was advised to eat a low-sodium diet (2 grams sodium or less daily). Syncope 712715344 R55 No recurrence [id number] [facility] [address] [place] [address] 05/21/2018 11:25:04 05/21/2018 12:58:33 Atypical chest pain 715373668 R07.89 Treadmill Myoview Stress test was postive, Cath showed mild Coronary Artery Disease 12/03/16: Two vessel coronary artery disease with significan t disease of the right coronary artery and diagonal branch of the left anterior descending ; however, The right coronary artery disease is moderate, 60-75%. ECHO: 09/18/16 There is mild concentric left ventricula r hypertroph y. Ejection fraction = 55-60%. Injection of contrast documented no interatria l shunt. Negative 2x bubble studies for right to left shunt. Highly mobile mass consistent with a torn or redundant chordae seen. There is mild mitral regurgitat ion. There is trace tricuspid regurgitat ion. No aortic stenosis. IVC appears normal in size. Grade I diastolic dysfunctio n, abnormal relaxation pattern. Given longer episode of intermitte nt chest pain previously , increased antiangina l regimen with increase to metoprolol succinate 25 mg qd 11/12/17. Chest pain stable overall otherwise. Began NTG SL prn. Considerat ion of PCI to RCA if medical management not adequate to control angina. Paroxysmal atrial fibrillation 931500638 I48.0 Prior Holter with short run of afib. Holter 11/30/16 : NSR. No PVC's. Rare PAC's. No recurrence . On ASA, Plavix, metoprolol . Newly, obtained 24 Holter Monitor 03/27/18 : Normal sinus rhythm. Sinus tachycardi a. Paroxysmal atrial fibrillati on (brief run up to 150 bpm). Rare PVC's but not correlated with symptoms. Occasional PAC's but not correlated with symptoms. No bleeding or falls. Continue ASA but stop Plavix. Began Eliquis 5 mg bid 05/21/18 for CVA risk reduction. Risks/bene fits discussed. Continue metoprolol . Ischemic stroke 81841244 2 I63.9 Ischemic stroke (09/16/16). Patient on ASA. Essential hypertension 88242155 I10 Patient's blood pressure is {{well-con trolled* s omewhat well-contr olled not well-contr olled}} on present medical therapy. Patient is {{tolerati ng, without difficulty ,* having side effects with}} the current medication s. I have {{not made* made the following} } changes to the current regimen. {{ Patient is advised to maintain a blood pressure diary.}} Patient was advised to eat a low-sodium diet (2 grams sodium or less daily). Dyslipidemia 341798023 E 78.5 Needs to keep LDL less than 70, and HDL more than 40 Will get fasting lipids for follow up. Had 11/18/17 Lipid: TC 149, TR 228, LDL 83, HDL 34. Increased atorvastat in to 80 mg qHS 01/22/18, but do to increased muscle aches, patient returned to 40 mg qHS. On 80 mg atorvastat in, had 05/15/18: LDL 60. Increased to fish oil 2 gm bid 05/21/18. Changed atorvastat in 40mg to rosuvastat in 20 mg qHS 05/21/18. Obtain FLP, CMP, Mg, CPK 1 mo. Type 2 juju betes mellitus without complication 610426871 E11.9 Controlled . Managed by Primary Palpitations 78282300 R0 0.2 Holter with afib. Syncope 902538599 R55 No recurrence [id number] Khanh [place] [facility] [address] [place] [address] 11/17/2018 13:57:18 11/17/2018 15:33:47 Atypical chest pain 668595171 R07.89 Treadmill Myoview Stress test was positive. Cath showed mild Coronary Artery Disease 12/03/16: Two vessel coronary artery disease with significan t disease of the right coronary artery and diagonal branch of the left anterior descending ; however, The right coronary artery disease is moderate, 60-75%. ECHO: 09/18/16 There is mild concentric left ventricula r hypertroph y. Ejection fraction = 55-60%. Injection of contrast documented no interatria l shunt. Negative 2x bubble studies for right to left shunt. Highly mobile mass consistent with a torn or redundant chordae seen. There is mild mitral regurgitat ion. There is trace tricuspid regurgitat ion. No aortic stenosis. IVC appears normal in size. Grade I diastolic dysfunctio n, abnormal relaxation pattern. Given longer episode of intermitte nt chest pain previously , increased antiangina l regimen with increase to metoprolol succinate 25 mg qd 11/12/17. Chest pain stable overall otherwise. Began NTG SL prn. Considerat ion of PCI to RCA if medical management not adequate to control angina. Paroxysmal atrial fibrillation 624007534 I48.0 Prior Holter with short run of afib. Holter 11/30/16 : NSR. No PVC's. Rare PAC's. No recurrence . On ASA, Eliquis, metoprolol . Newly, obtained 24 Holter Monitor 03/27/18 : Normal sinus rhythm. Sinus tachycardi a. Paroxysmal atrial fibrillati on (brief run up to 150 bpm). Rare PVC's but not correlated with symptoms. Occasional PAC's but not correlated with symptoms. No bleeding or falls. Continue ASA but stop Plavix. Began Eliquis 5 mg bid 05/21/18 samples for CVA risk reduction. Risks/bene fits discussed. May need to switch to Coumadin if insurance cannot approve Eliquis. Continue metoprolol . Ischemic stroke 59552758 2 I63.9 Ischemic stroke (09/16/16). Patient on ASA. Essential hypertension 62257659 I10 Patient's blood pressure is {{well-con trolled* s omewhat well-contr olled not well-contr olled}} on present medical therapy. Patient is {{tolerati ng, without difficulty ,* having side effects with}} the current medication s. I have {{not made* made the following} } changes to the current regimen. {{ Patient is advised to maintain a blood pressure diary.*}} Patient was advised to eat a low-sodium diet (2 grams sodium or less daily). Dyslipidemia 650422735 E 78.5 Will get fasting lipids for follow up. Had 11/18/17 Lipid: TC 149, TR 228, LDL 83, HDL 34. Increased atorvastat in to 80 mg qHS 01/22/18, but do to increased muscle aches, patient returned to 40 mg qHS. On 80 mg atorvastat in, had 05/15/18: LDL 60. Increased to fish oil 2 gm bid 05/21/18. Changed atorvastat in 40mg to rosuvastat in 20 mg qHS 05/21/18 but patient did not start as it was approved by insurance. She is alternatin g atorvastat in 40mg with 80 mg every other day as you can not tolerate more atorvastat in due to muscle aches. On maximally tolerated dose of atorvastat in, had 09/15/18: LDL 77, Tg 206, FT4 0.91 normal. Needs to keep LDL less than 70, and HDL more than 40, in the setting of moderate to severe coronary artery disease by [facility]. Begin Repatha 140 mg SC q 2 weeks. Type 2 juju betes mellitus without complication 727242713 E11.9 Controlled . Managed by Primary Palpitations 57366933 R0 0.2 Holter with afib. Syncope 604015426 R55 No recurrence 03165 Khanh [place] [facility] [place] [address] 12/24/2018 15:50:22 12/24/2018 17:55:47 Atypical chest pain 751262213 R07.89 Stable. Treadmill Myoview Stress test was positive. Cath showed mild Coronary Artery Disease 12/03/16: Two vessel coronary artery disease with significan t disease of the right coronary artery and diagonal branch of the left anterior descending ; however, The right coronary artery disease is moderate, 60-75%. ECHO: 09/18/16 There is mild concentric left ventricula r hypertroph y. Ejection fraction = 55-60%. Injection of contrast documented no interatria l shunt. Negative 2x bubble studies for right to left shunt. Highly mobile mass consistent with a torn or redundant chordae seen. There is mild mitral regurgitat ion. There is trace tricuspid regurgitat ion. No aortic stenosis. IVC appears normal in size. Grade I diastolic dysfunctio n, abnormal relaxation pattern. Given longer episode of intermitte nt chest pain previously , increased antiangina l regimen with increase to metoprolol succinate 25 mg qd 11/12/17. Chest pain stable overall otherwise. Began NTG SL prn. Considerat ion of PCI to RCA if medical management not adequate to control angina. Began Ranexa 500 mg bid 12/24/18. Obtain echo to evaluate for structural /functiona l disease. Paroxysmal atrial fibrillation 343086531 I48.0 Prior Holter with short run of afib. Holter 11/30/16 : NSR. No PVC's. Rare PAC's. No recurrence . On ASA, Eliquis, metoprolol . Newly, obtained 24 Holter Monitor 03/27/18 : Normal sinus rhythm. Sinus tachycardi a. Paroxysmal atrial fibrillati on (brief run up to 150 bpm). Rare PVC's but not correlated with symptoms. Occasional PAC's but not correlated with symptoms. No bleeding or falls. Continue ASA but stop Plavix. Began Eliquis 5 mg bid 05/21/18 samples for CVA risk reduction. Risks/bene fits discussed. May need to switch to Coumadin if insurance cannot approve Eliquis. Continue metoprolol . Ischemic stroke 33910005 2 I63.9 Ischemic stroke (09/16/16). Patient on ASA. Essential hypertension 99229185 I10 Patient's blood pressure is {{well-con trolled* s omewhat well-contr olled not well-contr olled}} on present medical therapy. Patient is {{tolerati ng, without difficulty ,* having side effects with}} the current medication s. I have {{not made* made the following} } changes to the current regimen. {{ Patient is advised to maintain a blood pressure diary.*}} Patient was advised to eat a low-sodium diet (2 grams sodium or less daily). Dyslipidemia 731731459 E 78.5 Will get fasting lipids for follow up. Had 11/18/17 Lipid: TC 149, TR 228, LDL 83, HDL 34. Increased atorvastat in to 80 mg qHS 01/22/18, but do to increased muscle aches, patient returned to 40 mg qHS. On 80 mg atorvastat in, had 05/15/18: LDL 60. Increased to fish oil 2 gm bid 05/21/18. Changed atorvastat in 40mg to rosuvastat in 20 mg qHS 05/21/18 but patient did not start as it was not approved by insurance. She is alternatin g atorvastat in 40mg with 80 mg every other day as you can not tolerate more atorvastat in due to muscle aches. On maximally tolerated dose of atorvastat in, had 09/15/18: LDL 77, Tg 206, FT4 0.91 normal. Needs to keep LDL less than 70, and HDL more than 40, in the setting of moderate to severe coronary artery disease by [facility]. Begin Repatha 140 mg SC q 2 weeks. Awaiting insurance approval. Patient now taking atorvastat in 80 mg qHS and has intolerabl e muscle aches and joint pain. Switched atorvastat in 80 mg to rosuvastat in 20 mg qHS 12/24/18. Obtain FLP, CMP, Mg, CPK in 1 mo. Type 2 juju betes mellitus without complication 336504477 E11.9 Controlled . Managed by Primary Palpitations 95734345 R0 0.2 Holter with afib. Syncope 103741795 R55 No recurrence 45806 Khanh [place] [facility] [address] [place] [address] 04/08/2019 16:14:30 04/08/2019 17:56:55 Atypical chest pain 990897014 R07.89 Reports recent chest pain, with some nitrate responsive ness, and known moderate CAD. Patient presents with {{chest* a rm back ja w}} pain {{typical of angina wit h atypical features*} }. Given the history, exam findings and {{high* in termediate low}} cardiac risk factors, I {{feel* do not feel}} additional investigat ion is warranted. I have made arrangemen ts in the near future for {{an exercise stress echocardio gram to evaluate for any ischemia, structural heart disease, or exercise induced arrythmia an exercise stress nuclear test an exercise stress nuclear test (stress echo not possible due to COPD or obesity)* an exercise stress nuclear test and an echocardio gram to evaluate for any ischemia or structural heart disease a pharmacolo gic stress nuclear test due to reduced functional capacity or conduction abnormalit y cardiac catheteriz ation an echocardio gram to evaluate left ventricula r function and any structural heart disease or valvular abnormalit y}}. The procedure was discussed with the patient, and risks, benefits, and alternativ e options were explained. {{ The patient was informed about heart catheteriz ation and interventi onal procedures and agrees to proceed.}} Appropriat e labwork {{has* has not}} been performed recently, therefore I {{have not* have} } made arrangemen ts for further testing. I have asked the patient to curtail exercise and activities until our investigat ion is complete. I have {{made no made the following* }} adjustment s to the present medical regimen. {{ Patient has been started on daily aspirin.}} {{ Patient has been given a prescripti on for sublingual nitroglyce rin.}} Cath showed mild Coronary Artery Disease 12/03/16: Two vessel coronary artery disease with significan t disease of the right coronary artery and diagonal branch of the left anterior descending ; however, The right coronary artery disease is moderate, 60-75%. ECHO: 09/18/16 There is mild concentric left ventricula r hypertroph y. Ejection fraction = 55-60%. Injection of contrast documented no interatria l shunt. Negative 2x bubble studies for right to left shunt. Highly mobile mass consistent with a torn or redundant chordae seen. There is mild mitral regurgitat ion. There is trace tricuspid regurgitat ion. No aortic stenosis. IVC appears normal in size. Grade I diastolic dysfunctio n, abnormal relaxation pattern. Given longer episode of intermitte nt chest pain previously , increased antiangina l regimen with increase to metoprolol succinate 25 mg qd 11/12/17. Chest pain stable overall otherwise. Began NTG SL prn. Considerat ion of PCI to RCA if medical management not adequate to control angina. Began Ranexa 500 mg bid 12/24/18 but patient never started, so begin 04/08/19 Had ECHO done in 01/22/19 showed borderline LVH, normal global systolic function, EF 65-70% , LV relaxation is impaired. Left atrium chamber is mildly dilated. The aortic valve is mildly calcified. There is mild aortic root calcificat ion. There is a dense posterior mitral annular calcificat ion. There is mild tricuspid regurgitat ion. . Sinus bradycardi a. Paroxysmal atrial fibrillation 617496708 I48.0 In NSR 04/08/19. Prior Holter with short run of afib. Holter 11/30/16 : NSR. No PVC's. Rare PAC's. No recurrence . On ASA, Eliquis, metoprolol . Newly, obtained 24 Holter Monitor 03/27/18 : Normal sinus rhythm. Sinus tachycardi a. Paroxysmal atrial fibrillati on (brief run up to 150 bpm). Rare PVC's but not correlated with symptoms. Occasional PAC's but not correlated with symptoms. No bleeding or falls. Continue ASA but stop Plavix. Began Eliquis 5 mg bid 05/21/18 samples for CVA risk reduction. Risks/bene fits discussed. May need to switch to Coumadin if insurance cannot approve Eliquis. May need patient assistance program. Continue metoprolol . Ischemic stroke 33271171 2 I63.9 Ischemic stroke (09/16/16). Patient on ASA. Essential hypertension 76725098 I10 Patient's blood pressure is {{well-con trolled* s omewhat well-contr olled not well-contr olled}} on present medical therapy. Patient is {{tolerati ng, without difficulty ,* having side effects with}} the current medication s. I have {{not made* made the following} } changes to the current regimen. {{ Patient is advised to maintain a blood pressure diary.*}} Patient was advised to eat a low-sodium diet (2 grams sodium or less daily). Dyslipidemia [id number] E 78.5 Will get fasting lipids for follow up. Had 11/18/17 Lipid: TC 149, TR 228, LDL 83, HDL 34. Increased atorvastat in to 80 mg qHS 01/22/18, but do to increased muscle aches, patient returned to 40 mg qHS. On 80 mg atorvastat in, had 05/15/18: LDL 60. Increased to fish oil 2 gm bid 05/21/18. Changed atorvastat in 40mg to rosuvastat in 20 mg qHS 05/21/18 but patient did not start as it was not approved by insurance. She is alternatin g atorvastat in 40mg with 80 mg every other day as you can not tolerate more atorvastat in due to muscle aches. On maximally tolerated dose of atorvastat in, had 09/15/18: LDL 77, Tg 206, FT4 0.91 normal. Needs to keep LDL less than 70, and HDL more than 40, in the setting of moderate to severe coronary artery disease by [facility]. Patient now taking atorvastat in 80 mg qHS and has intolerabl e muscle aches and joint pain. Switched atorvastat in 80 mg to rosuvastat in 20 mg qHS 12/24/18, with less muscle aches. She has osteoarthr itis. Had 03/18/19: LDL 54. Obtain CPK with next blood draw. Consider Repatha if patient becomes intolerant of rosuvastat in. Type 2 juju betes mellitus without complication [id number] E11.9 Controlled . Managed by [facility] [id number] R0 0.2 Holter with afib. Syncope [id number] R55 No recurrence [id number] [facility] [address] [place] [address] 08/19/2019 10:34:39 08/19/2019 11:43:05 Atypical chest pain [id number] R07.89 Atypical for 1-2 seconds at rest. Possible VPDs or afib contributi ng based on prior Holter. Patient presents with {{chest* a rm back ja w}} pain {{typical of angina wit h atypical features*} }. Had exercise nuclear stress test 08/07/19: negative for ischemia, LVEF >60%. Submaximal test (82% MPHR). Cath showed mild Coronary Artery Disease 12/03/16: Two vessel coronary artery disease with significan t disease of the right coronary artery and diagonal branch of the left anterior descending ; however, The right coronary artery disease is moderate, 60-75%. Had ECHO done in 01/22/19 showed normal global systolic function, EF 65-70% , LV relaxation is impaired. Left atrium chamber is mildly dilated. The aortic valve is mildly calcified. There is mild aortic root calcificat ion. There is a dense posterior mitral annular calcificat ion. There is mild tricuspid regurgitat ion. . Sinus bradycardi a . Given longer episode of intermitte nt chest pain previously , increased antiangina l regimen with increase to metoprolol succinate 25 mg qd 11/12/17. Chest pain stable overall otherwise. Began NTG SL prn. Considerat ion of PCI to RCA if medical management not adequate to control angina. Began Ranexa 500 mg bid 12/24/18 but patient never started, so begin 04/08/19 but with severe back aches subsequent ly so she discontinu ed Ranexa. Paroxysmal atrial fibrillation [id number] I48.0 In NSR 04/08/19, 08/19/19. Prior Holter with short run of afib. Holter 11/30/16 : NSR. No PVC's. Rare PAC's. No recurrence . On Eliquis, metoprolol . Newly, obtained 24 Holter Monitor 03/27/18 : Normal sinus rhythm. Sinus tachycardi a. Paroxysmal atrial fibrillati on (brief run up to 150 bpm). Rare PVC's but not correlated with symptoms. Occasional PAC's but not correlated with symptoms. No bleeding or falls. Began Eliquis 5 mg bid 05/21/18 samples for CVA risk reduction. Risks/bene fits discussed. May need to switch to Coumadin if insurance cannot approve Eliquis. May need patient assistance program. Ischemic stroke [id number] 2 I63.9 Ischemic stroke (09/16/16). Patient on ASA. Needs to keep LDL less than 70, and HDL more than 40. Essential hypertension [id number] I10 Patient's blood pressure is {{well-con trolled* s omewhat well-contr olled not well-contr olled}} on present medical therapy. Patient is {{tolerati ng, without difficulty ,* having side effects with}} the current medication s. I have {{not made* made the following} } changes to the current regimen. {{ Patient is advised to maintain a blood pressure diary.*}} Patient was advised to eat a low-sodium diet (2 grams sodium or less daily). Dyslipidemia [id number] E 78.5 Had 11/18/17 Lipid: TC 149, TR 228, LDL 83, HDL 34. Increased atorvastat in to 80 mg qHS 01/22/18, but do to increased muscle aches, patient returned to 40 mg qHS. On 80 mg atorvastat in, had 05/15/18: LDL 60. Increased to fish oil 2 gm bid 05/21/18. Changed atorvastat in 40mg to rosuvastat in 20 mg qHS 05/21/18 but patient did not start as it was not approved by insurance. She is alternatin g atorvastat in 40mg with 80 mg every other day as you can not tolerate more atorvastat in due to muscle aches. On maximally tolerated dose of atorvastat in, had 09/15/18: LDL 77, Tg 206, FT4 0.91 normal. Needs to keep LDL less than 70, and HDL more than 40, in the setting of moderate to severe coronary artery disease by [facility]. Patient now taking atorvastat in 80 mg qHS and has intolerabl e muscle aches and joint pain. Switched atorvastat in 80 mg to rosuvastat in 20 mg qHS 12/24/18, with less muscle aches. She has osteoarthr itis. Had 03/18/19: LDL 54. Obtain CPK with next blood draw. Consider Repatha if patient becomes intolerant of rosuvastat in. Type 2 juju betes mellitus without complication [id number] E11.9 Controlled . Managed by [facility] [id number] R0 0.2 Holter with afib. Syncope [id number] R55 No recurrence Obstructiv e sleep apnea syndrome [id number] G47.33 Reports fatigue and daytime somnolence . Obtain home sleep study. [id number] [facility] [address] [place] [id number] 08/24/2020 14:02:23 08/24/2020 20:37:19 Atypical chest pain [id number] R07.89 Atypical for 1-2 seconds at rest. Possible VPDs or afib contributi ng based on prior Holter. Patient presents with {{chest* a rm back ja w}} pain {{typical of angina wit h atypical features*} }. They are stable, as they have been since 2019. Had exercise nuclear stress test 08/07/19: negative for ischemia, LVEF >60%. Submaximal test (82% MPHR). Cath showed mild Coronary Artery Disease 12/03/16: Two vessel coronary artery disease with significan t disease of the right coronary artery and diagonal branch of the left anterior descending ; however, The right coronary artery disease is moderate, 60-75%. Had ECHO done in 01/22/19 showed normal global systolic function, EF 65-70% , LV relaxation is impaired. Left atrium chamber is mildly dilated. The aortic valve is mildly calcified. There is mild aortic root calcificat ion. There is a dense posterior mitral annular calcificat ion. There is mild tricuspid regurgitat ion. . Sinus bradycardi a . Given longer episode of intermitte nt chest pain previously , increased antiangina l regimen with increase to metoprolol succinate 25 mg qd 11/12/17. Chest pain stable overall otherwise. Began NTG SL prn. Considerat ion of PCI to RCA if medical management not adequate to control angina. Began Ranexa 500 mg bid 12/24/18 but patient never started, so begin 04/08/19 but with severe back aches subsequent ly so she discontinu ed Ranexa. Paroxysmal atrial fibrillation [id number] I48.0 In NSR 04/08/19, 08/19/19., 08/24/20 Prior Holter with short run of afib. Holter 11/30/16 : NSR. No PVC's. Rare PAC's. No recurrence . On Eliquis, metoprolol . Newly, obtained 24 Holter Monitor 03/27/18 : Normal sinus rhythm. Sinus tachycardi a. Paroxysmal atrial fibrillati on (brief run up to 150 bpm). Rare PVC's but not correlated with symptoms. Occasional PAC's but not correlated with symptoms. No bleeding or falls. Began Eliquis 5 mg bid 05/21/18 samples for CVA risk reduction. Risks/bene fits discussed. May need to switch to Coumadin if insurance cannot approve Eliquis. May need patient assistance program. Ischemic stroke 38904468 2 I63.9 Ischemic stroke (09/16/16). Patient on ASA. Needs to keep LDL less than 70, and HDL more than 40. Essential hypertension 55299730 I10 Patient's blood pressure is {{well-con trolled* s omewhat well-contr olled not well-contr olled}} on present medical therapy. Patient is {{tolerati ng, without difficulty ,* having side effects with}} the current medication s. I have {{not made* made the following} } changes to the current regimen. {{ Patient is advised to maintain a blood pressure diary.*}} Patient was advised to eat a low-sodium diet (2 grams sodium or less daily). Dyslipidemia 410369518 E 78.5 Had 11/18/17 Lipid: TC 149, TR 228, LDL 83, HDL 34. Increased atorvastat in to 80 mg qHS 01/22/18, but do to increased muscle aches, patient returned to 40 mg qHS. On 80 mg atorvastat in, had 05/15/18: LDL 60. Increased to fish oil 2 gm bid 05/21/18. Changed atorvastat in 40mg to rosuvastat in 20 mg qHS 05/21/18 but patient did not start as it was not approved by insurance. She is alternatin g atorvastat in 40mg with 80 mg every other day as you can not tolerate more atorvastat in due to muscle aches. On maximally tolerated dose of atorvastat in, had 09/15/18: LDL 77, Tg 206, FT4 0.91 normal. Needs to keep LDL less than 70, and HDL more than 40, in the setting of moderate to severe coronary artery disease by [facility]. Patient now taking atorvastat in 80 mg qHS and has intolerabl e muscle aches and joint pain. Switched atorvastat in 80 mg to rosuvastat in 20 mg qHS 12/24/18, with less muscle aches. She has osteoarthr itis. Had 03/18/19: LDL 54. Obtain CPK with next blood draw. Consider Repatha if patient becomes intolerant of rosuvastat in. Obtain FLP, TSH, CMP Type 2 juju betes mellitus without complication [id number] E11.9 Controlled . Managed by [facility] [id number] R0 0.2 Holter with afib.Obtai n TSH as above Syncope 145107589 R55 No recurrence Obstructiv e sleep apnea syndrome 62147563 G47.33 Reports fatigue and daytime somnolence .04/14/20 SLEEP STUDY: Findings are consistent with moderate, positional obstructiv e sleep apnea. Obtain C-Pap [id number] [facility] [place] [address] 06/14/2021 14:59:52 06/14/2021 16:31:18 Atypical chest pain [id number] R07.89 Atypical for 2-10 seconds at rest. Stable. Possible VPDs or afib contributi ng based on prior Holter. Patient presents with {{chest* a rm back ja w}} pain {{typical of angina wit h atypical features*} }. They are stable, as they have been since 2018. Had exercise nuclear stress test 08/07/19: negative for ischemia, LVEF >60%. Submaximal test (82% MPHR). Cath showed mild Coronary Artery Disease 12/03/16: Two vessel coronary artery disease with significan t disease of the right coronary artery and diagonal branch of the left anterior descending ; however, The right coronary artery disease is moderate, 60-75%. Had ECHO done in 01/22/19 showed normal global systolic function, EF 65-70% , LV relaxation is impaired. Left atrium chamber is mildly dilated. The aortic valve is mildly calcified. There is mild aortic root calcificat ion. There is a dense posterior mitral annular calcificat ion. There is mild tricuspid regurgitat ion. . Sinus bradycardi a . Given longer episode of intermitte nt chest pain previously , increased antiangina l regimen with increase to metoprolol succinate 25 mg qd 11/12/17. Chest pain stable overall otherwise. Began NTG SL prn. Considerat ion of PCI to RCA if medical management not adequate to control angina. Continue ASA. Began Ranexa 500 mg bid 12/24/18 but patient never started, so begin 04/08/19 but with severe back aches subsequent ly so she discontinu ed Ranexa. Paroxysmal atrial fibrillation 105690079 I48.0 In NSR 04/08/19, 08/19/19., 08/24/20, 06/14/20. Prior Holter with short run of afib. Holter 11/30/16 : NSR. No PVC's. Rare PAC's. No recurrence . On Eliquis, metoprolol . Newly, obtained 24 Holter Monitor 03/27/18 : Normal sinus rhythm. Sinus tachycardi a. Paroxysmal atrial fibrillati on (brief run up to 150 bpm). Rare PVC's but not correlated with symptoms. Occasional PAC's but not correlated with symptoms. No bleeding or falls. Began Eliquis 5 mg bid 05/21/18 samples for CVA risk reduction. Risks/bene fits discussed. May need to switch to Coumadin if insurance cannot approve Eliquis, with pre-author ization needed based on continuity of care as she is using Eliquis samples, with prior CVA and difficulty with Coumadin/I NR compliance with untreated possible depression . May need patient assistance program. Obtain TSH, CBC, CMP results per PCP 05/2021. Ischemic stroke 74243898 2 I63.9 Ischemic stroke (09/16/16). Patient on ASA. Needs to keep LDL less than 70, and HDL more than 40. Essential hypertension 21794856 I10 Patient's blood pressure is {{well-con trolled* s omewhat well-contr olled not well-contr olled}} on present medical therapy. Patient is {{tolerati ng, without difficulty ,* having side effects with}} the current medication s. I have {{not made* made the following} } changes to the current regimen. {{ Patient is advised to maintain a blood pressure diary.*}} Patient was advised to eat a low-sodium diet (2 grams sodium or less daily). Dyslipidemia 909556505 E 78.5 Had 11/18/17 Lipid: TC 149, TR 228, LDL 83, HDL 34. Increased atorvastat in to 80 mg qHS 01/22/18, but do to increased muscle aches, patient returned to 40 mg qHS. On 80 mg atorvastat in, had 05/15/18: LDL 60. Increased to fish oil 2 gm bid 05/21/18. Changed atorvastat in 40mg to rosuvastat in 20 mg qHS 05/21/18 but patient did not start as it was not approved by insurance. She is addy g atorvastat in 40mg with 80 mg every other day as you can not tolerate more atorvastat in due to muscle aches. On maximally tolerated dose of atorvastat in, had 09/15/18: LDL 77, Tg 206, FT4 0.91 normal. Needs to keep LDL less than 70, and HDL more than 40, in the setting of moderate to severe coronary artery disease by [facility]. Patient now taking atorvastat in 80 mg qHS and has intolerabl e muscle aches and joint pain. Switched atorvastat in 80 mg to rosuvastat in 20 mg qHS 12/24/18, with less muscle aches. She has osteoarthr itis. Had 03/18/19: LDL 54. Obtain CPK with next blood draw. Consider Repatha if patient becomes intolerant of rosuvastat in. Obtain FLP, TSH, CMP, CBC per PCP. Type 2 juju betes mellitus without complication 422827714 E11.9 Controlled . Managed by [facility] [id number] R0 0.2 Holter with afib.Obtai n TSH as above Obstructiv e sleep apnea syndrome 92965681 G47.33 Reports fatigue and daytime somnolence .04/14/20 SLEEP STUDY: Findings are consistent with moderate, positional obstructiv e sleep apnea. Obtain CPAP. Prior authorizat ion needed. Obtain echo to evaluate for structural /functiona l disease, reassess RVSP in setting of untreated moderate PHILIPP. Dizziness 402596115 R42 Increased. Obtain echo to evaluate for structural /functiona l disease, reassess RVSP in setting of untreated moderate PHILIPP. [id number] [facility] [address] [place] [address] 08/23/2021 14:43:49 08/23/2021 16:06:51 Atypical chest pain 578928826 R07.89 Atypical for 5-10 seconds at rest. Stable. Possible VPDs or afib contributi ng based on prior Holter. Patient presents with {{chest* a rm back ja w}} pain {{typical of angina wit h atypical features*} }. They are stable, as they have been since 2019. Had exercise nuclear stress test 08/07/19: negative for ischemia, LVEF >60%. Submaximal test (82% MPHR). Cath showed mild Coronary Artery Disease 12/03/16: Two vessel coronary artery disease with significan t disease of the right coronary artery and diagonal branch of the left anterior descending ; however, The right coronary artery disease is moderate, 60-75%. Had Echo 08/02/2021 : Study quality: Technicall y difficult. LV chamber size is normal. LV wall thickness is mild to moderately increased. There is normal global systolic function and contractil ity. The estimated left ventricle ejection fraction is 55-60% (normal). Normal left atrial pressure with Grade 1 diastolic dysfunctio n. There is trace triscupid regurgitat ion. Given longer episode of intermitte nt chest pain previously , increased antiangina l regimen with increase to metoprolol succinate 25 mg qd 11/12/17. Chest pain stable overall otherwise. Began NTG SL prn. Considerat ion of PCI to RCA if medical management not adequate to control angina. Continue ASA. Began Ranexa 500 mg bid 12/24/18 but patient never started, so begin 04/08/19 but with severe back aches subsequent ly so she discontinu ed Ranexa. She would need repeat stress test prior to any wrist or orthopedic surgery, no plans yet for surgery. Paroxysmal atrial fibrillation [id number] I48.0 In NSR 04/08/19, 08/19/19., 08/24/20, 06/14/20. Prior Holter with short run of afib. Holter 11/30/16 : NSR. No PVC's. Rare PAC's. No recurrence . On Eliquis, metoprolol . Newly, obtained 24 Holter Monitor 03/27/18 : Normal sinus rhythm. Sinus tachycardi a. Paroxysmal atrial fibrillati on (brief run up to 150 bpm). Rare PVC's but not correlated with symptoms. Occasional PAC's but not correlated with symptoms. No bleeding or falls. Began Eliquis 5 mg bid 05/21/18 samples for CVA risk reduction. Risks/bene fits discussed. May need to switch to Coumadin if insurance cannot approve Eliquis, with pre-author ization needed based on continuity of care as she is using Eliquis samples, with prior CVA and difficulty with Coumadin/I NR compliance with untreated possible depression . May need patient assistance program. Obtain TSH, CBC, CMP, Mg, FLP. Ischemic stroke [id number] 2 I63.9 Ischemic stroke (09/16/16). Patient on ASA. Needs to keep LDL less than 70, and HDL more than 40. Essential hypertension 99525956 I10 Has mild-moder ate LVH. Patient's blood pressure is {{well-con trolled so mewhat well-contr olled* not well-contr olled}} on present medical therapy. Patient is {{tolerati ng, without difficulty ,* having side effects with}} the current medication s. I have {{not made* made the following} } changes to the current regimen. {{ Patient is advised to maintain a blood pressure diary.*}} Patient was advised to eat a low-sodium diet (2 grams sodium or less daily). BP diary. Dyslipidemia 643645853 E 78.5 Had 11/18/17 Lipid: TC 149, TR 228, LDL 83, HDL 34. Increased atorvastat in to 80 mg qHS 01/22/18, but do to increased muscle aches, patient returned to 40 mg qHS. On 80 mg atorvastat in, had 05/15/18: LDL 60. Increased to fish oil 2 gm bid 05/21/18. Changed atorvastat in 40mg to rosuvastat in 20 mg qHS 05/21/18 but patient did not start as it was not approved by insurance. She is alternatin g atorvastat in 40mg with 80 mg every other day as you can not tolerate more atorvastat in due to muscle aches. On maximally tolerated dose of atorvastat in, had 09/15/18: LDL 77, Tg 206, FT4 0.91 normal. Needs to keep LDL less than 70, and HDL more than 40, in the setting of moderate to severe coronary artery disease by [facility]. Patient now taking atorvastat in 80 mg qHS and has intolerabl e muscle aches and joint pain. Switched atorvastat in 80 mg to rosuvastat in 20 mg qHS 12/24/18, with less muscle aches. She has osteoarthr itis. Had 03/18/19: LDL 54. Obtain CPK with next blood draw. Consider Repatha if patient becomes intolerant of rosuvastat in. She is no longer on fish oil. Obtain FLP, TSH, CMP, CBC, Mg Type 2 juju betes mellitus without complication 214215258 E11.9 Controlled . Managed by [facility] [id number] R0 0.2 Holter with afib.Obtai n TSH as above Obstructiv e sleep apnea syndrome 19945122 G47.33 Reports fatigue and daytime somnolence .04/14/20 SLEEP STUDY: Findings are consistent with moderate, positional obstructiv e sleep apnea. Had Echo 08/02/2021 : Study quality: Technicall y difficult. LV chamber size is normal. LV wall thickness is mild to moderately increased. There is normal global systolic function and contractil ity. The estimated left ventricle ejection fraction is 55-60% (normal). Normal left atrial pressure with Grade 1 diastolic dysfunctio n. There is trace triscupid regurgitat ion. RVSP 12. Obtain CPAP. Prior authorizat ion needed. Obtain referral to sleep [facility] compatible to [facility] per patient's preference as she prefers [facility]. Dizziness [id number] R42 Improved. Had Echo 08/02/2021 : Study quality: Technicall y difficult. LV chamber size is normal. LV wall thickness is mild to moderately increased. There is normal global systolic function and contractil ity. The estimated left ventricle ejection fraction is 55-60% (normal). Normal left atrial pressure with Grade 1 diastolic dysfunctio n. There is trace triscupid regurgitat ion. RVSP 12. [id number] [facility] [address] [place] [address] 03/14/2022 15:48:54 03/14/2022 17:45:12 Atypical chest pain 075124638 R07.89 Chest pain Increased in frequency. Patient presents with {{chest* a rm back ja w}} pain {{typical of angina wit h atypical features*} }. Given the history, exam findings and {{high int ermediate* low}} cardiac risk factors, I {{feel* do not feel}} additional investigat ion is warranted. I have made arrangemen ts in the near future for {{an exercise stress echocardio gram to evaluate for any ischemia, structural heart disease, or exercise induced arrythmia an exercise stress nuclear test an exercise stress nuclear test (stress echo not possible due to COPD or obesity)* an exercise stress nuclear test and an echocardio gram to evaluate for any ischemia or structural heart disease a pharmacolo gic stress nuclear test due to reduced functional capacity or conduction abnormalit y cardiac catheteriz ation an echocardio gram to evaluate left ventricula r function and any structural heart disease or valvular abnormalit y}}. The procedure was discussed with the patient, and risks, benefits, and alternativ e options were explained. {{ The patient was informed about heart catheteriz ation and interventi onal procedures and agrees to proceed.}} Appropriat e labwork {{has* has not}} been performed recently, therefore I {{have not* have} } made arrangemen ts for further testing. I have asked the patient to curtail exercise and activities until our investigat ion is complete. I have {{made no made the following* }} adjustment s to the present medical regimen. {{ Patient has been started on daily aspirin.}} {{ Patient has been given a prescripti on for sublingual nitroglyce rin.}} Had exercise nuclear stress test 08/07/19: negative for ischemia, LVEF >60%. Submaximal test (82% MPHR). Cath showed mild Coronary Artery Disease 12/03/16: Two vessel coronary artery disease with significan t disease of the right coronary artery and diagonal branch of the left anterior descending ; however, The right coronary artery disease is moderate, 60-75%. Had Echo 08/02/2021 : Study quality: Technicall y difficult. LV chamber size is normal. LV wall thickness is mild to moderately increased. There is normal global systolic function and contractil ity. The estimated left ventricle ejection fraction is 55-60% (normal). Normal left atrial pressure with Grade 1 diastolic dysfunctio n. There is trace triscupid regurgitat ion. Given longer episode of intermitte nt chest pain previously , increased antiangina l regimen with increase to metoprolol succinate 25 mg qd 11/12/17. Chest pain stable overall otherwise. Began NTG SL prn. Considerat ion of PCI to RCA if medical management not adequate to control angina. Continue ASA. Began Ranexa 500 mg bid 12/24/18 but patient never started, so begin 04/08/19 but with severe back aches subsequent ly so she discontinu ed Ranexa. She would need repeat stress test prior to any wrist or orthopedic surgery, no plans yet for surgery. Paroxysmal atrial fibrillation [id number] I48.0 In NSR 04/08/19, 08/19/19., 08/24/20, 06/14/20. Prior Holter with short run of afib. Holter 11/30/16 : NSR. No PVC's. Rare PAC's. No recurrence . On Eliquis, metoprolol . Newly, obtained 24 Holter Monitor 03/27/18 : Normal sinus rhythm. Sinus tachycardi a. Paroxysmal atrial fibrillati on (brief run up to 150 bpm). Rare PVC's but not correlated with symptoms. Occasional PAC's but not correlated with symptoms. No bleeding or falls. Began Eliquis 5 mg bid 05/21/18 samples for CVA risk reduction. Risks/bene fits discussed. May need to switch to Coumadin if insurance cannot approve Eliquis, with pre-author ization needed based on continuity of care as she is using Eliquis samples, with prior CVA and difficulty with Coumadin/I NR compliance with untreated possible depression . May need patient assistance program. Ischemic stroke [id number] I63.9 Ischemic stroke (09/16/16). Patient on ASA. Needs to keep LDL less than 70, and HDL more than 40. Had CAR: 09/17/16 Normal carotid study bilaterall y. Antegrade flow noted in bilateral vertebral arteries. Obtain carotid U/S, with prior CVA and occasional dizziness. Essential hypertension [id number] I10 Has mild-moder ate LVH. Patient's blood pressure is {{well-con trolled* s omewhat well-contr olled not well-contr olled}} on present medical therapy. Patient is {{tolerati ng, without difficulty ,* having side effects with}} the current medication s. I have {{not made* made the following} } changes to the current regimen. {{ Patient is advised to maintain a blood pressure diary.*}} Patient was advised to eat a low-sodium diet (2 grams sodium or less daily). BP diary. Had 02/23/2022 [id number]-4.7 WBC 7.9 RBC 5.07 HGB 14.0 HCT 45.7 PLT 217MAG-1.9 CMP-NA 139 K 3.9 GL 86 BUN 22 CR 1.11 CA 10.0LIPID- CHOL 156 HDL 42 LDL 85 TRIG 147TSH-2.1 3T4-9.2 Dyslipidemia [id number] E 78.5 Had 11/18/17 Lipid: TC 149, TR 228, LDL 83, HDL 34. Increased atorvastat in to 80 mg qHS 01/22/18, but do to increased muscle aches, patient returned to 40 mg qHS. On 80 mg atorvastat in, had 05/15/18: LDL 60. Increased to fish oil 2 gm bid 05/21/18. Changed atorvastat in 40mg to rosuvastat in 20 mg qHS 05/21/18 but patient did not start as it was not approved by insurance. She is alternatin g atorvastat in 40mg with 80 mg every other day as you can not tolerate more atorvastat in due to muscle aches. On maximally tolerated dose of atorvastat in, had 09/15/18: LDL 77, Tg 206, FT4 0.91 normal. Needs to keep LDL less than 70, and HDL more than 40, in the setting of moderate to severe coronary artery disease by [facility]. Patient now taking atorvastat in 80 mg qHS and has intolerabl e muscle aches and joint pain. Switched atorvastat in 80 mg to rosuvastat in 20 mg qHS 12/24/18, with less muscle aches. She has osteoarthr itis. Had 03/18/19: LDL 54. Consider Repatha if patient becomes intolerant of rosuvastat in. She is no longer on fish oil. Had 02/23/2022 : LIPID-CHOL 156 HDL 42 LDL 85 TRIG 147 Increased to rosuvastat in 40 mg HS 03/14/22. Obtain CMP, FLP, CPK, Mg 1 mo. Type 2 juju betes mellitus without complication [id number] E11.9 Controlled . Managed by [facility] [id number] R0 0.2 Holter with afib.Obtai joan normal TSH as above Obstructiv e sleep apnea syndrome [id number] G47.33 Reports fatigue and daytime somnolence .04/14/20 SLEEP STUDY: Findings are consistent with moderate, positional obstructiv e sleep apnea. Had Echo 08/02/2021 : Study quality: Technicall y difficult. LV chamber size is normal. LV wall thickness is mild to moderately increased. There is normal global systolic function and contractil ity. The estimated left ventricle ejection fraction is 55-60% (normal). Normal left atrial pressure with Grade 1 diastolic dysfunctio n. There is trace triscupid regurgitat ion. RVSP 12. Obtain CPAP. Prior authorizat ion needed. Obtain referral to sleep MD compatible to [facility] per patient's preference as she prefers Bipap. Dizziness [id number] R42 Increased. Had Echo 08/02/2021 : Study quality: Technicall y difficult. LV chamber size is normal. LV wall thickness is mild to moderately increased. There is normal global systolic function and contractil ity. The estimated left ventricle ejection fraction is 55-60% (normal). Normal left atrial pressure with Grade 1 diastolic dysfunctio n. There is trace triscupid regurgitat ion. RVSP 12. Obtain carotid [place]/S. [address] [facility] [address] [place] [id number] 05/30/2022 11:30:51 05/30/2022 12:33:50 Atypical chest pain [id number] R07.89 Chest pain Increased in frequency. Patient presents with {{chest* a rm back ja w}} pain {{typical of angina wit h atypical features*} } Had exercise nuclear stress test ( 2): Positive stress test for ischemia. Normal LV systolic function. Abnormal stress test. Reversible defect consistent with ischemia in infero-sep lea area. Compared to last study in 08/07/2019 infero-sep lea reversible defects is now present. Exercise tolerance: Below Average. The patient will be scheduled for left heart catheteriz ation, with coronary angiogram, and possible PTCA/Stent . The procedure was discussed with the patient, and risks, benefits, and alternativ e options were explained. The patient was given informatio n about heart catheteriz ation and interventi onal procedures . The patient agrees to proceed at [facility]. Cath showed mild Coronary Artery Disease 12/03/16: Two vessel coronary artery disease with significan t disease of the right coronary artery and diagonal branch of the left anterior descending ; however, The right coronary artery disease is moderate, 60-75%. Had Echo 08/02/2021 : Study quality: Technicall y difficult. LV chamber size is normal. LV wall thickness is mild to moderately increased. There is normal global systolic function and contractil ity. The estimated left ventricle ejection fraction is 55-60% (normal). Normal left atrial pressure with Grade 1 diastolic dysfunctio n. There is trace triscupid regurgitat ion. Given longer episode of intermitte nt chest pain previously , increased antiangina l regimen with increase to metoprolol succinate 25 mg qd 11/12/17. Chest pain stable overall otherwise. Began NTG SL prn. Considerat ion of PCI to RCA if medical management not adequate to control angina. Continue ASA. Began Ranexa 500 mg bid 12/24/18 but patient never started, so begin 04/08/19 but with severe back aches subsequent ly so she discontinu ed Ranexa. Paroxysmal atrial fibrillation [id number] I48.0 In NSR 04/08/19, 08/19/19., 08/24/20, 06/14/20. Prior Holter with short run of afib. Holter 11/30/16 : NSR. No PVC's. Rare PAC's. No recurrence . On Eliquis, metoprolol . Newly, obtained 24 Holter Monitor 03/27/18 : Normal sinus rhythm. Sinus tachycardi a. Paroxysmal atrial fibrillati on (brief run up to 150 bpm). Rare PVC's but not correlated with symptoms. Occasional PAC's but not correlated with symptoms. No bleeding or falls. Began Eliquis 5 mg bid 05/21/18 samples for CVA risk reduction. Risks/bene fits discussed. May need to switch to Coumadin if insurance cannot approve Eliquis, with pre-author ization needed based on continuity of care as she is using Eliquis samples, with prior CVA and difficulty with Coumadin/I NR compliance with untreated possible depression . May need patient assistance program. Ischemic stroke [id number] 2 I63.9 Ischemic stroke (09/16/16). Patient on ASA. Needs to keep LDL less than 70, and HDL more than 40. Had 04/06/22 US, carotid artery:Ant egrade flow noted in both vertebral arteries. Mild bilateral internal carotid artery stenosis with less than 50% diameter stenosis. Compared to last study in 09/17/2016 mild bilateral internal carotid artery stenosis is now noted. Had CAR: 09/17/16 Normal carotid study bilaterall y. Antegrade flow noted in bilateral vertebral arteries. Needs repeat carotid U/S 10/2022. Essential hypertension [id number] I10 Has mild-moder ate LVH. Patient's blood pressure is {{well-con trolled* s omewhat well-contr olled not well-contr olled}} on present medical therapy. Patient is {{tolerati ng, without difficulty ,* having side effects with}} the current medication s. I have {{not made* made the following} } changes to the current regimen. {{ Patient is advised to maintain a blood pressure diary.*}} Patient was advised to eat a low-sodium diet (2 grams sodium or less daily). BP diary. Had 02/23/2022 VRVB0U-0.7 WBC 7.9 RBC 5.07 HGB 14.0 HCT 45.7 PLT 217MAG-1.9 CMP-NA 139 K 3.9 GL 86 BUN 22 CR 1.11 CA 10.0LIPID- CHOL 156 HDL 42 LDL 85 TRIG 147TSH-2.1 3T4-9.2 Dyslipidemia [id number] E 78.5 Had 11/18/17 Lipid: TC 149, TR 228, LDL 83, HDL 34. Increased atorvastat in to 80 mg qHS 01/22/18, but do to increased muscle aches, patient returned to 40 mg qHS. On 80 mg atorvastat in, had 05/15/18: LDL 60. Increased to fish oil 2 gm bid 05/21/18. Changed atorvastat in 40mg to rosuvastat in 20 mg qHS 05/21/18 but patient did not start as it was not approved by insurance. She is alternatin g atorvastat in 40mg with 80 mg every other day as you can not tolerate more atorvastat in due to muscle aches. On maximally tolerated dose of atorvastat in, had 09/15/18: LDL 77, Tg 206, FT4 0.91 normal. Needs to keep LDL less than 70, and HDL more than 40, in the setting of moderate to severe coronary artery disease by [facility]. Patient was taking atorvastat in 80 mg qHS and has intolerabl e muscle aches and joint pain. Switched atorvastat in 80 mg to rosuvastat in 20 mg qHS 12/24/18, with less muscle aches. She has osteoarthr itis. Had 03/18/19: LDL 54. Consider Repatha if patient becomes intolerant of rosuvastat in. She is no longer on fish oil. Had 02/23/2022 : LIPID-CHOL 156 HDL 42 LDL 85 TRIG 147 Increased to rosuvastat in 40 mg HS 03/14/22, with occasional muscle aches. Had 05/19/2022 LIPID-CHOL 159 HDL 45 TRIG 134 LDL 91CMP-GL 100 BUN 19 CR 0.95 NA 140 K 4.5 CA 9.7 MAG 2.0 TSH 2.80CBC-WB C 9.3 RBC 4.86 HGB 13.3 HCT 41.1 PLT 214 Due to muscle aches, reduced rosuvastat in from 40 mg qd to 40 mg HS alternatin g with 20 mg HS 05/30/22. She needs improved control of LDL given CAD, with LDL 91 on maximally tolerated dose of statin. Needs to keep LDL less than 70, and HDL more than 40. Began Repatha 05/30/22. Obtain FLP once on Repatha for 1 month. Type 2 juju betes mellitus without complication [id number] E11.9 Controlled . Managed by [facility] [id number] R0 0.2 Holter with afib.Obtai joan normal TSH as above Obstructiv e sleep apnea syndrome [id number] G47.33 Reports fatigue and daytime somnolence .04/14/20 SLEEP STUDY: Findings are consistent with moderate, positional obstructiv e sleep apnea. Had Echo 08/02/2021 : Study quality: Technicall y difficult. LV chamber size is normal. LV wall thickness is mild to moderately increased. There is normal global systolic function and contractil ity. The estimated left ventricle ejection fraction is 55-60% (normal). Normal left atrial pressure with Grade 1 diastolic dysfunctio n. There is trace triscupid regurgitat ion. RVSP 12. Obtain CPAP. Prior authorizat ion needed. Obtain referral to sleep MD compatible to [place] per patient's preference as she prefers Bipap. Dizziness [id number] R42 Increased. Had Echo 08/02/2021 : Study quality: Technicall y difficult. LV chamber size is normal. LV wall thickness is mild to moderately increased. There is normal global systolic function and contractil ity. The estimated left ventricle ejection fraction is 55-60% (normal). Normal left atrial pressure with Grade 1 diastolic dysfunctio n. There is trace triscupid regurgitat ion. RVSP 12. Obtained carotid U/S with mild disease. Coronary arteriosclerosis [id number] I25.10 Cath showed mild to moderate Coronary Artery Disease 12/03/16: Two vessel coronary artery disease with significan t disease of the right coronary artery and diagonal branch of the left anterior descending ; however, The right coronary artery disease is moderate, 60-75%. Due to muscle aches, reduced rosuvastat in from 40 mg qd to 40 mg HS alternatin g with 20 mg HS 05/30/22. She needs improved control of LDL given CAD, with LDL 91 on maximally tolerated dose of statin. Needs to keep LDL less than 70, and HDL more than 40. Began Repatha 05/30/22. Health Concerns Section Related Observation LastModified by Organization Evaristo ls LastModified Time None Recorded Concern Status LastModified by Organization Details LastModified Time None Recorded Advance Directives Directive None Recorded Payers Encounter Date Sequence Insurance Name Policy Number Policy Coker Covered Member ID Coker Member ID Guarantor Name 08/24/2020 1 [facility] PRIOR TO 12/08/2020 (MEDICAID REPLACEMENT - HMO) Vanesa Santana [id number] Vanesa Santana 06/14/2021 1 [facility] PRIOR TO 12/08/2020 (MEDICAID REPLACEMENT - HMO) Vanesa Santana [id number] Vaneas Santana 08/23/2021 1 [facility] ON OR AFTER 12/08/20 (MEDICAID REPLACEMENT - HMO) Vanesa Santana [id number] Vanesa Santana 03/14/2022 1 [facility] ON OR AFTER 12/08/20 (MEDICAID REPLACEMENT - HMO) Vanesa Santana [id number] Vanesa Santana 05/30/2022 1 [facility] ON OR AFTER 20 (MEDICAID REPLACEMENT - HMO) Vanesa Santana [id number] Vanesa Santana Notes Date Note Type Note Provider Name and Address Organization Details Recorded Time 08/24/2020 text/html 08/24/20 CC: Chest pain 57 year-old white woman with two vessel CAD, hypertension, ischemic stroke (09/16/16, no residual deficit), macular edema, dyslipidemia, diabetes mellitus with neuropathy, R lobe thyroidectomy, vertigo, is here for follow up chest pain. Patient was last seen 08/19/2019. She denies ER visits and hospitalizations since she was last seen. Today she reports: Continues to report stable nonexertional chest pain for 1-2 sec only. No shortness of breath at rest. No dyspnea on exertion. Reports less intermittent bilateral ankle edema, sleeps with legs elevated and on HCTZ 25 mg qAM and 12.5mg qPM. No orthopnea. No PND's. No palpitations. No dizziness. No syncope or near syncope. Tolerating medications without difficulty. Patient reports anxiety. Patient reports fatigue and depression. Reports partial thyroidectomy but is not on synthroid. She exercise 6 days a week Previously, She was in the ER 10/24/17 with elevated blood pressure. She believed it was from an ear drop she was on and it had steroids in it. She now has BP under control and is off the medication. She has been under increased stress with taking care of her elderly mother. She reports her diabetes is well controlled on Metformin, HgbA1c 5.1. She does not been checking her BP regularly at home regularly because it was causing her much stress. Reports home BP 90/60. She was in the hospital because of ischemic stroke 09/16/16, no deficits. Pt reports she had taken herself off all her medications for 1 year. During hospital stay patient was see by neurologist via telehealth. Quit smoking 10 years ago. Remote family history of heart disease. Had ECHO done in 01/22/19 showed normal global systolic function, EF 65-70% , LV relaxation is impaired. Left atrium chamber is mildly dilated. The aortic valve is mildly calcified. There is mild aortic root calcification. There is a dense posterior mitral annular calcification. There is mild tricuspid regurgitation. . Sinus bradycardia . Had Echo on 09/18/16 There is mild concentric left ventricular hypertrophy. Ejection fraction = 55-60%. Injection of contrast documented no interatrial shunt. Negative 2x bubble studies for right to left shunt. Highly mobile mass consistent with a torn or redundant chordae seen. There is mild mitral regurgitation. There is trace tricuspid regurgitation. No aortic stenosis. IVC appears normal in size. Grade I diastolic dysfunction, abnormal relaxation pattern. Had exercise nuclear stress test 08/07/19: negative for ischemia, LVEF >60%. Submaximal test, (82% MPHR). Had postive stress test on 11/20/16: Normal LV systolic function. Reversible defect consistent with old infarction in inferior area. Exercise tolerance is below average. LVEF 68%. Had CATH 12/03/16 : Two-vessel coronary artery disease with significant disease of the right coronary artery and diagonal branch of the left anterior descending however, the right coronary artery disease is moderate 60-75%. Consideration of PCI to RCA if medical management not adequate to control angina. Had carotid artery ultrasound on 09/17/16: Normal carotid study bilaterally. Antegrade flow noted in bilateral vertebral arteries. Had Holter done 03/27/18 showed Normal sinus rhythm. Sinus tachycardia. Paroxysmal atrial fibrillation , Rare PVC's but not correlated with symptoms. Occasional PAC's but not correlated with symptoms. Reports fatigue and daytime somnolence. Results from this visit, or from the past: 03/18/19: LDL 54. 4- LIPID: TC 156, TR 206, HDL 38, LDL 774- CMP: GLU 110, BUN 20, CR 0.8, NA 145, K 4.30, CL 103, Co2 28, ALT 20, AST : TC 130, TG 182,HDL 35 ,LDL 60,05/15/18: NA 143, K 4.1, CL 103 ,CO2 25, GLU 123, BUN 14, CR 0.92 ,AST 21,ALT 22,11/18/17 Lipid: TC 149, TR 228, LDL 83, HDL 34 11/18/17 CMP: SOD 141, K 4.6, CL 105, CO2 27, GL 91, BUN 25, CR 0.78, AST 17, ALT 14 10/24/17: NA: 141, K: 4.2, CL: 101, CO2: 27, GLU: 123, BUN: 19, AST: 23, ALT: 21, CR: 0.8 10/24/17: TSH: 4.55, free T4 0.99. 10/24/17: WBC: 9.3, RBC: 4.50, HGB: 13.4, HCT: 39.0, PLT: 220 12/03/16 Na 140,K 4.0 ,CL 102, CO2 23 ,GLU 172 ,BUN 13 ,CR 0.7 12/03/16 : PT 12.9,INR 0.96,PTT 30. 12/03/16: HB 13.2, HT 38.7 11/06/16: SOD 143, K 3.7, CL 100, CO2 27, GL 121, BUN 18, CR 1.1, AST 15, ALT 18. 11/06/16: HGB 13.7, HCT 41.0 08/19/2019 EKG: NSREK11/17/18 Left axis deviation.EKG 05/21/18 ; Left anterior hemiblock. EKG 01/22/18 : Incomplete RBBB LEft axis deviation EKG 10/24/17: Normal sinus rhythm. Poor R progression. NSST changes. When compared with ECG of 11/06/16, No significant change was found EKG 06/14/17 : Left axis deviation EK11/06/16 Normal sinus rhythm. Left axis deviation. Abnormal ECG. When compared with ECG of 16-SEP-2016 QT has lengthened. Holter 11/30/16 : NSR. No PVC's. Rare PAC's. Holter Monitor 03/27/18 : Normal sinus rhythm. Sinus tachycardia. Paroxysmal atrial fibrillation (brief run up to 150 bpm). Rare PVC's but not correlated with symptoms. Occasional PAC's but not correlated with symptoms. Had exercise nuclear stress test 08/07/19: negative for ischemia, LVEF >60%. Submaximal test. Treadmill Nuclear Stress Test 11/20/16 : Positive stress test. Normal LV systolic function. Reversible defect consistent with old infarction in inferior area Exercise t Had ECHO done in 01/22/19 showed normal global systolic function, EF 65-70% , LV relaxation is impaired. Left atrium chamber is mildly dilated. The aortic valve is mildly calcified. There is mild aortic root calcification. There is a dense posterior mitral annular calcification. There is mild tricuspid regurgitation. . Sinus bradycardia . ECHO 09/18/16: ECHO: 09/18/16 There is mild concentric left ventricular hypertrophy. Ejection fraction = 55-60%. Injection of contrast documented no interatrial shunt. Negative 2x bubble studies for right to left shunt. Highly mobile mass consistent with a torn or redundant chordae seen. There is mild mitral regurgitation. There is trace tricuspid regurgitation. No aortic stenosis. IVC appears normal in size. Grade I diastolic dysfunction, abnormal relaxation pattern. CAROTID 09/17/16: Normal carotid study bilaterally. Antegrade flow noted in bilateral vertebral arteries. C XRAY 09/16/16: No acute pulmonary abnormality. CATH 12/03/16 : Two-vessel coronary artery disease with significant disease of the right coronary artery and diagonal branch of the left anterior descending however , the right coronary artery disease is moderate 60-75% . Myocardial Perfusion Study 08/07/19:Negative stress test for ischemia,normal LV systolic function,artifact noted,abnormal stress test , LVEF >60%. 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 [facility] [place], [place] - [facility] 08/24/2020 20:37:17 06/14/2021 text/html 06/14/21 CC: Chest pain 61 year-old white woman with two vessel CAD, hypertension, ischemic stroke (09/16/16, no residual deficit), macular edema, dyslipidemia, diabetes mellitus with neuropathy, R lobe thyroidectomy, vertigo, is here for follow up chest pain. Patient was last seen 08/24/2020. She denies ER visits and hospitalizations since she was last seen. Reports fatigue. She no longer swims due to COVID restrictions and has knee pain. Had 8 lb weight gain. She thinks she has depression or ADHD but not had professional evaluation yet. She has plans to see someone in [place]. Today she reports: Continues to report stable nonexertional chest pain for 10-15 sec only, improved, rare. No shortness of breath at rest. No dyspnea on exertion. Reports less intermittent bilateral ankle edema, sleeps with legs elevated and on HCTZ 25 mg qAM and 12.5mg qPM. No orthopnea. No PND's. No palpitations. Reports dizziness when standing or bending. No syncope or near syncope. Tolerating medications without difficulty. Patient reports anxiety. Patient reports fatigue and depression. Reports partial thyroidectomy but is not on synthroid. She was in the ER 10/24/17 with elevated blood pressure. She believed it was from an ear drop she was on and it had steroids in it. She now has BP under control and is off the medication. She has been under increased stress with taking care of her elderly mother. She reports her diabetes is well controlled on Metformin, HgbA1c 5.1. She does not been checking her BP regularly at home regularly because it was causing her much stress. Reports home BP 90/60. She was in the hospital because of ischemic stroke 09/16/16, no deficits. Pt reports she had taken herself off all her medications for 1 year. During hospital stay patient was see by neurologist via telehealth. Quit smoking 10 years ago. Remote family history of heart disease. Had ECHO done in 01/22/19 showed normal global systolic function, EF 65-70% , LV relaxation is impaired. Left atrium chamber is mildly dilated. The aortic valve is mildly calcified. There is mild aortic root calcification. There is a dense posterior mitral annular calcification. There is mild tricuspid regurgitation. . Sinus bradycardia . Had Echo on 09/18/16 There is mild concentric left ventricular hypertrophy. Ejection fraction = 55-60%. Injection of contrast documented no interatrial shunt. Negative 2x bubble studies for right to left shunt. Highly mobile mass consistent with a torn or redundant chordae seen. There is mild mitral regurgitation. There is trace tricuspid regurgitation. No aortic stenosis. IVC appears normal in size. Grade I diastolic dysfunction, abnormal relaxation pattern. Had exercise nuclear stress test 08/07/19: negative for ischemia, LVEF >60%. Submaximal test, (82% MPHR). Had postive stress test on 11/20/16: Normal LV systolic function. Reversible defect consistent with old infarction in inferior area. Exercise tolerance is below average. LVEF 68%. Had CATH 12/03/16 : Two-vessel coronary artery disease with significant disease of the right coronary artery and diagonal branch of the left anterior descending however, the right coronary artery disease is moderate 60-75%. Consideration of PCI to RCA if medical management not adequate to control angina. Had carotid artery ultrasound on 09/17/16: Normal carotid study bilaterally. Antegrade flow noted in bilateral vertebral arteries. Had Holter done 03/27/18 showed Normal sinus rhythm. Sinus tachycardia. Paroxysmal atrial fibrillation , Rare PVC's but not correlated with symptoms. Occasional PAC's but not correlated with symptoms. Reports fatigue and daytime somnolence. Results from this visit, or from the past: 03/18/19: LDL 54. 4- LIPID: TC 156, TR 206, HDL 38, LDL 774- CMP: GLU 110, BUN 20, CR 0.8, NA 145, K 4.30, CL 103, Co2 28, ALT 20, AST : TC 130, TG 182,HDL 35 ,LDL 60,05/15/18: NA 143, K 4.1, CL 103 ,CO2 25, GLU 123, BUN 14, CR 0.92 ,AST 21,ALT 22,11/18/17 Lipid: TC 149, TR 228, LDL 83, HDL 34 11/18/17 CMP: SOD 141, K 4.6, CL 105, CO2 27, GL 91, BUN 25, CR 0.78, AST 17, ALT 14 10/24/17: NA: 141, K: 4.2, CL: 101, CO2: 27, GLU: 123, BUN: 19, AST: 23, ALT: 21, CR: 0.8 10/24/17: TSH: 4.55, free T4 0.99. 10/24/17: WBC: 9.3, RBC: 4.50, HGB: 13.4, HCT: 39.0, PLT: 220 12/03/16 Na 140,K 4.0 ,CL 102, CO2 23 ,GLU 172 ,BUN 13 ,CR 0.7 12/03/16 : PT 12.9,INR 0.96,PTT 30. 12/03/16: HB 13.2, HT 38.7 11/06/16: SOD 143, K 3.7, CL 100, CO2 27, GL 121, BUN 18, CR 1.1, AST 15, ALT 18. 11/06/16: HGB 13.7, HCT 41.0 08/24/20 EKG: PRWP 08/19/2019 EKG: NSREK11/17/18 Left axis deviation.EKG 05/21/18 ; Left anterior hemiblock. EKG 01/22/18 : Incomplete RBBB LEft axis deviation EKG 10/24/17: Normal sinus rhythm. Poor R progression. NSST changes. When compared with ECG of 11/06/16, No significant change was found EKG 06/14/17 : Left axis deviation EK11/06/16 Normal sinus rhythm. Left axis deviation. Abnormal ECG. When compared with ECG of 16-SEP-2016 QT has lengthened. Holter 11/30/16 : NSR. No PVC's. Rare PAC's. Holter Monitor 03/27/18 : Normal sinus rhythm. Sinus tachycardia. Paroxysmal atrial fibrillation (brief run up to 150 bpm). Rare PVC's but not correlated with symptoms. Occasional PAC's but not correlated with symptoms. Had exercise nuclear stress test 08/07/19: negative for ischemia, LVEF >60%. Submaximal test. Treadmill Nuclear Stress Test 11/20/16 : Positive stress test. Normal LV systolic function. Reversible defect consistent with old infarction in inferior area Exercise t Had ECHO done in 01/22/19 showed normal global systolic function, EF 65-70% , LV relaxation is impaired. Left atrium chamber is mildly dilated. The aortic valve is mildly calcified. There is mild aortic root calcification. There is a dense posterior mitral annular calcification. There is mild tricuspid regurgitation. . Sinus bradycardia . ECHO 09/18/16: ECHO: 09/18/16 There is mild concentric left ventricular hypertrophy. Ejection fraction = 55-60%. Injection of contrast documented no interatrial shunt. Negative 2x bubble studies for right to left shunt. Highly mobile mass consistent with a torn or redundant chordae seen. There is mild mitral regurgitation. There is trace tricuspid regurgitation. No aortic stenosis. IVC appears normal in size. Grade I diastolic dysfunction, abnormal relaxation pattern. CAROTID 09/17/16: Normal carotid study bilaterally. Antegrade flow noted in bilateral vertebral arteries. C XRAY 09/16/16: No acute pulmonary abnormality. CATH 12/03/16 : Two-vessel coronary artery disease with significant disease of the right coronary artery and diagonal branch of the left anterior descending however , the right coronary artery disease is moderate 60-75% . Myocardial Perfusion Study 08/07/19:Negative stress test for ischemia,normal LV systolic function,artifact noted,abnormal stress test , LVEF >60%. 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 [facility] [place], [place] - [facility] 06/14/2021 16:22:46 08/23/2021 text/html 08/23/21 CC: Chest pain 61 year-old white woman with two vessel CAD, hypertension, ischemic stroke (09/16/16, no residual deficit), macular edema, dyslipidemia, diabetes mellitus with neuropathy, moderate PHILIPP (not on CPAP), R lobe thyroidectomy, vertigo, is here for follow up chest pain. Patient was last seen 06/14/2021. She denies ER visits and hospitalizations since she was last seen.Reports fatigue. She no longer swims due to COVID restrictions and has knee pain. Had 8 lb weight gain. She thinks she has depression or ADHD but not had professional evaluation yet. She has plans to see someone in [place]. Continues to report stable left central nonexertional chest pain/pressure for 10-15 sec only, improved, infrequent (<1 month). No shortness of breath at rest. No dyspnea on exertion. Reports less intermittent bilateral ankle edema, sleeps with legs elevated and on HCTZ 25 mg qAM and 12.5mg qPM. No orthopnea. No PND's. No palpitations. Reports less dizziness when standing or bending. No syncope or near syncope. Tolerating medications without difficulty. Patient reports anxiety. Patient reports fatigue and depression. Reports partial thyroidectomy but is not on synthroid. She was in the ER 10/24/17 with elevated blood pressure. She believed it was from an ear drop she was on and it had steroids in it. She now has BP under control and is off the medication. She has been under increased stress with taking care of her elderly mother. She reports her diabetes is well controlled on Metformin, HgbA1c 5.1. She does not been checking her BP regularly at home regularly because it was causing her much stress. Reports home BP 90/60. She was in the hospital because of ischemic stroke 09/16/16, no deficits. Pt reports she had taken herself off all her medications for 1 year. During hospital stay patient was see by neurologist via telehealth. Quit smoking 10 years ago. Remote family history of heart disease. Had Echo 08/02/2021: Study quality: Technically difficult. LV chamber size is normal. LV wall thickness is mild to moderately increased. There is normal global systolic function and contractility. The estimated left ventricle ejection fraction is 55-60% (normal). Normal left atrial pressure with Grade 1 diastolic dysfunction. There is trace triscupid regurgitation. Had ECHO done in 01/22/19 showed normal global systolic function, EF 65-70% , LV relaxation is impaired. Left atrium chamber is mildly dilated. The aortic valve is mildly calcified. There is mild aortic root calcification. There is a dense posterior mitral annular calcification. There is mild tricuspid regurgitation. . Sinus bradycardia . Had Echo on 09/18/16 There is mild concentric left ventricular hypertrophy. Ejection fraction = 55-60%. Injection of contrast documented no interatrial shunt. Negative 2x bubble studies for right to left shunt. Highly mobile mass consistent with a torn or redundant chordae seen. There is mild mitral regurgitation. There is trace tricuspid regurgitation. No aortic stenosis. IVC appears normal in size. Grade I diastolic dysfunction, abnormal relaxation pattern. Had exercise nuclear stress test 08/07/19: negative for ischemia, LVEF >60%. Submaximal test, (82% MPHR). Had postive stress test on 11/20/16: Normal LV systolic function. Reversible defect consistent with old infarction in inferior area. Exercise tolerance is below average. LVEF 68%. Had CATH 12/03/16 : Two-vessel coronary artery disease with significant disease of the right coronary artery and diagonal branch of the left anterior descending however, the right coronary artery disease is moderate 60-75%. Consideration of PCI to RCA if medical management not adequate to control angina. Had carotid artery ultrasound on 09/17/16: Normal carotid study bilaterally. Antegrade flow noted in bilateral vertebral arteries. Had Holter done 03/27/18 showed Normal sinus rhythm. Sinus tachycardia. Paroxysmal atrial fibrillation , Rare PVC's but not correlated with symptoms. Occasional PAC's but not correlated with symptoms. Reports fatigue and daytime somnolence. Results from this visit, or from the past: 03/18/19: LDL 54. 4- LIPID: TC 156, TR 206, HDL 38, LDL 774- CMP: GLU 110, BUN 20, CR 0.8, NA 145, K 4.30, CL 103, Co2 28, ALT 20, AST : TC 130, TG 182,HDL 35 ,LDL 60,05/15/18: NA 143, K 4.1, CL 103 ,CO2 25, GLU 123, BUN 14, CR 0.92 ,AST 21,ALT 22,11/18/17 Lipid: TC 149, TR 228, LDL 83, HDL 34 11/18/17 CMP: SOD 141, K 4.6, CL 105, CO2 27, GL 91, BUN 25, CR 0.78, AST 17, ALT 14 10/24/17: NA: 141, K: 4.2, CL: 101, CO2: 27, GLU: 123, BUN: 19, AST: 23, ALT: 21, CR: 0.8 10/24/17: TSH: 4.55, free T4 0.99. 10/24/17: WBC: 9.3, RBC: 4.50, HGB: 13.4, HCT: 39.0, PLT: 220 12/03/16 Na 140,K 4.0 ,CL 102, CO2 23 ,GLU 172 ,BUN 13 ,CR 0.7 12/03/16 : PT 12.9,INR 0.96,PTT 30. 12/03/16: HB 13.2, HT 38.7 11/06/16: SOD 143, K 3.7, CL 100, CO2 27, GL 121, BUN 18, CR 1.1, AST 15, ALT 18. 11/06/16: HGB 13.7, HCT 41.0 Had Echo 08/02/2021: Study quality: Technically difficult. LV chamber size is normal. LV wall thickness is mild to moderately increased. There is normal global systolic function and contractility. The estimated left ventricle ejection fraction is 55-60% (normal). Normal left atrial pressure with Grade 1 diastolic dysfunction. There is trace triscupid regurgitation. 06-14-21 Sinus rhythm, P; normal, QRS; marked left axis deviation, ST-T; normal , conclusion: 08/24/20 EKG: PRWP 08/19/2019 EKG: NSREK11/17/18 Left axis deviation.EKG 05/21/18 ; Left anterior hemiblock. EKG 01/22/18 : Incomplete RBBB LEft axis deviation EKG 10/24/17: Normal sinus rhythm. Poor R progression. NSST changes. When compared with ECG of 11/06/16, No significant change was found EKG 06/14/17 : Left axis deviation EK11/06/16 Normal sinus rhythm. Left axis deviation. Abnormal ECG. When compared with ECG of 16-SEP-2016 QT has lengthened. Holter 11/30/16 : NSR. No PVC's. Rare PAC's. Holter Monitor 03/27/18 : Normal sinus rhythm. Sinus tachycardia. Paroxysmal atrial fibrillation (brief run up to 150 bpm). Rare PVC's but not correlated with symptoms. Occasional PAC's but not correlated with symptoms. Had exercise nuclear stress test 08/07/19: negative for ischemia, LVEF >60%. Submaximal test. Treadmill Nuclear Stress Test 11/20/16 : Positive stress test. Normal LV systolic function. Reversible defect consistent with old infarction in inferior area Exercise t Had ECHO done in 01/22/19 showed normal global systolic function, EF 65-70% , LV relaxation is impaired. Left atrium chamber is mildly dilated. The aortic valve is mildly calcified. There is mild aortic root calcification. There is a dense posterior mitral annular calcification. There is mild tricuspid regurgitation. . Sinus bradycardia . ECHO 09/18/16: ECHO: 09/18/16 There is mild concentric left ventricular hypertrophy. Ejection fraction = 55-60%. Injection of contrast documented no interatrial shunt. Negative 2x bubble studies for right to left shunt. Highly mobile mass consistent with a torn or redundant chordae seen. There is mild mitral regurgitation. There is trace tricuspid regurgitation. No aortic stenosis. IVC appears normal in size. Grade I diastolic dysfunction, abnormal relaxation pattern. CAROTID 09/17/16: Normal carotid study bilaterally. Antegrade flow noted in bilateral vertebral arteries. C XRAY 09/16/16: No acute pulmonary abnormality. CATH 12/03/16 : Two-vessel coronary artery disease with significant disease of the right coronary artery and diagonal branch of the left anterior descending however , the right coronary artery disease is moderate 60-75% . Myocardial Perfusion Study 08/07/19:Negative stress test for ischemia,normal LV systolic function,artifact noted,abnormal stress test , LVEF >60%. 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 [facility] [place] - [facility] 08/23/2021 16:01:10 03/14/2022 text/html 03/14/22 CC: Chest pain 62 year-old white woman with two vessel CAD, hypertension, ischemic stroke (09/16/16, no residual deficit), macular edema, dyslipidemia, diabetes mellitus with neuropathy, moderate PHILIPP (not on CPAP), R lobe thyroidectomy, vertigo, is here for follow up chest pain. Patient was last seen 08/23/2021. She denies ER visits and hospitalizations since she was last seen.Reports fatigue. She no longer swims due to COVID restrictions and has knee pain. Had 8 lb weight gain. She thinks she has depression or ADHD but not had professional evaluation yet. She has plans to see someone in [place]. Continues left central nonexertional chest pain/pressure, increased infrequency. No shortness of breath at rest. No dyspnea on exertion. Reports less intermittent bilateral ankle edema, sleeps with legs elevated and on HCTZ 25 mg qAM regularly and 12.5mg qPM prn. No orthopnea. No PND's. No palpitations. Reports dizziness when standing or bending. No syncope or near syncope. Tolerating medications without difficulty. Patient reports anxiety. Patient reports fatigue and depression. Reports partial thyroidectomy but is not on synthroid. She was in the ER 10/24/17 with elevated blood pressure. She believed it was from an ear drop she was on and it had steroids in it. She now has BP under control and is off the medication. She has been under increased stress with taking care of her elderly mother. She reports her diabetes is well controlled on Metformin, HgbA1c 5.1. She does not been checking her BP regularly at home regularly because it was causing her much stress. Reports home BP 90/60. She was in the hospital because of ischemic stroke 09/16/16, no deficits. Pt reports she had taken herself off all her medications for 1 year. During hospital stay patient was see by neurologist via telehealth. Quit smoking 10 years ago. Remote family history of heart disease. Had Echo 08/02/2021: Study quality: Technically difficult. LV chamber size is normal. LV wall thickness is mild to moderately increased. There is normal global systolic function and contractility. The estimated left ventricle ejection fraction is 55-60% (normal). Normal left atrial pressure with Grade 1 diastolic dysfunction. There is trace triscupid regurgitation. Had ECHO done in 01/22/19 showed normal global systolic function, EF 65-70% , LV relaxation is impaired. Left atrium chamber is mildly dilated. The aortic valve is mildly calcified. There is mild aortic root calcification. There is a dense posterior mitral annular calcification. There is mild tricuspid regurgitation. . Sinus bradycardia . Had Echo on 09/18/16 There is mild concentric left ventricular hypertrophy. Ejection fraction = 55-60%. Injection of contrast documented no interatrial shunt. Negative 2x bubble studies for right to left shunt. Highly mobile mass consistent with a torn or redundant chordae seen. There is mild mitral regurgitation. There is trace tricuspid regurgitation. No aortic stenosis. IVC appears normal in size. Grade I diastolic dysfunction, abnormal relaxation pattern. Had exercise nuclear stress test 08/07/19: negative for ischemia, LVEF >60%. Submaximal test, (82% MPHR). Had postive stress test on 11/20/16: Normal LV systolic function. Reversible defect consistent with old infarction in inferior area. Exercise tolerance is below average. LVEF 68%. Had CATH 12/03/16 : Two-vessel coronary artery disease with significant disease of the right coronary artery and diagonal branch of the left anterior descending however, the right coronary artery disease is moderate 60-75%. Consideration of PCI to RCA if medical management not adequate to control angina. Had carotid artery ultrasound on 09/17/16: Normal carotid study bilaterally. Antegrade flow noted in bilateral vertebral arteries. Had Holter done 03/27/18 showed Normal sinus rhythm. Sinus tachycardia. Paroxysmal atrial fibrillation , Rare PVC's but not correlated with symptoms. Occasional PAC's but not correlated with symptoms. Reports fatigue and daytime somnolence. Results from this visit, or from the past: 02/23/[id number]-3.7WB C 7.9 RBC 5.07 HGB 14.0 HCT 45.7 PLT 217MAG-1.9CMP-NA 139 K 3.9 GL 86 BUN 22 CR 1.11 CA 10.0LIPID-CHOL 156 HDL 42 LDL 85 TRIG 147TSH-2.13T4-9.2 03/18/19: LDL 54.4- LIPID: TC 156, TR 206, HDL 38, LDL 774- CMP: GLU 110, BUN 20, CR 0.8, NA 145, K 4.30, CL 103, Co2 28, ALT 20, AST 20 05/15/18: TC 130, TG 182,HDL 35 ,LDL 60,05/15/18: NA 143, K 4.1, CL 103 ,CO2 25, GLU 123, BUN 14, CR 0.92 ,AST 21,ALT 22,11/18/17 Lipid: TC 149, TR 228, LDL 83, HDL 346/11/18 CMP: SOD 141, K 4.6, CL 105, CO2 27, GL 91, BUN 25, CR 0.78, AST 17, ALT : NA: 141, K: 4.2, CL: 101, CO2: 27, GLU: 123, BUN: 19, AST: 23, ALT: 21, CR: 0.805: TSH: 4.55, free T4 0.99.10/24/17: WBC: 9.3, RBC: 4.50, HGB: 13.4, HCT: 39.0, PLT: 220 12/03/16 Na 140,K 4.0 ,CL 102, CO2 23 ,GLU 172 ,BUN 13 ,CR 0.7012/03/16 : PT 12.9,INR 0.96,PTT 30.12/03/16: HB 13.2, HT 38.7011/06/16: SOD 143, K 3.7, CL 100, CO2 27, GL 121, BUN 18, CR 1.1, AST 15, ALT 18.11/06/16: HGB 13.7, HCT 41.0 06-14-21 Sinus rhythm, P; normal, QRS; marked left axis deviation, ST-T; normal , conclusion:08/24/20 EKG: PRW08/19/2019 EKG: NSREK11/17/18 Left axis deviation.EKG 05/21/18 ; Left anterior hemiblock.EKG 01/22/18 : Incomplete RBBB LEft axis deviationEKG 10/24/17: Normal sinus rhythm. Poor R progression. NSST changes. When compared with ECG of 11/06/16, No significant change was foundEKG 06/14/17 : Left axis deviationEK11/06/16 Normal sinus rhythm. Left axis deviation. Abnormal ECG. When compared with ECG of 16-SEP-2016 QT has lengthened. Holter 11/30/16 : NSR. No PVC's. Rare PAC's. Holter Monitor 03/27/18 : Normal sinus rhythm. Sinus tachycardia. Paroxysmal atrial fibrillation (brief run up to 150 bpm). Rare PVC's but not correlated with symptoms. Occasional PAC's but not correlated with symptoms. Had exercise nuclear stress test 08/07/19: negative for ischemia, LVEF >60%. Submaximal test. Treadmill Nuclear Stress Test 11/20/16 : Positive stress test. Normal LV systolic function. Reversible defect consistent with old infarction in inferior area Exercise t Had Echo 08/02/2021: Study quality: Technically difficult. LV chamber size is normal. LV wall thickness is mild to moderately increased. There is normal global systolic function and contractility. The estimated left ventricle ejection fraction is 55-60% (normal). Normal left atrial pressure with Grade 1 diastolic dysfunction. There is trace triscupid regurgitation. Had ECHO done in 01/22/19 showed normal global systolic function, EF 65-70% , LV relaxation is impaired. Left atrium chamber is mildly dilated. The aortic valve is mildly calcified. There is mild aortic root calcification. There is a dense posterior mitral annular calcification. There is mild tricuspid regurgitation. . Sinus bradycardia . ECHO 09/18/16: ECHO: 09/18/16 There is mild concentric left ventricular hypertrophy. Ejection fraction = 55-60%. Injection of contrast documented no interatrial shunt. Negative 2x bubble studies for right to left shunt. Highly mobile mass consistent with a torn or redundant chordae seen. There is mild mitral regurgitation. There is trace tricuspid regurgitation. No aortic stenosis. IVC appears normal in size. Grade I diastolic dysfunction, abnormal relaxation pattern. CAROTID 09/17/16: Normal carotid study bilaterally. Antegrade flow noted in bilateral vertebral arteries. C XRAY 09/16/16: No acute pulmonary abnormality. CATH 12/03/16 : Two-vessel coronary artery disease with significant disease of the right coronary artery and diagonal branch of the left anterior descending however , the right coronary artery disease is moderate 60-75% . Myocardial Perfusion Study 08/07/19:Negative stress test for ischemia,normal LV systolic function,artifact noted,abnormal stress test , LVEF >60%. 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 [facility] [place] - [facility] 03/14/2022 17:37:28 05/30/2022 text/html 05/30/22 CC: Chest pain 62 year-old white woman with two vessel CAD, hypertension, ischemic stroke (09/16/16, no residual deficit), macular edema, dyslipidemia, diabetes mellitus with neuropathy, moderate PHILIPP (not on CPAP), R lobe thyroidectomy, vertigo, is here for follow up chest pain. Patient was last seen 03/14/2022. She denies ER visits and hospitalizations since she was last seen.She was treated for UTI per PCP 05/2022. Reports fatigue. She no longer swims due to COVID restrictions and has knee pain. Had 9 lb weight gain. She thinks she has depression or ADHD but not had professional evaluation yet. She has plans to see someone in [place]. Continues left central nonexertional chest pain/pressure. No shortness of breath at rest. No dyspnea on exertion. Reports intermittent bilateral ankle edema, sleeps with legs elevated and on HCTZ 25 mg qAM regularly and 12.5mg qPM prn edema. No orthopnea. No PND's. No palpitations. Reports dizziness when standing or bending. No syncope or near syncope. Tolerating medications without difficulty. Patient reports anxiety. Patient reports fatigue and depression. Reports partial thyroidectomy but is not on synthroid. She was in the ER 10/24/17 with elevated blood pressure. She believed it was from an ear drop she was on and it had steroids in it. She now has BP under control and is off the medication. She has been under increased stress with taking care of her elderly mother. She reports her diabetes is well controlled on Metformin, HgbA1c 5.1. She does not been checking her BP regularly at home regularly because it was causing her much stress. Reports home BP 90/60. She was in the hospital because of ischemic stroke 09/16/16, no deficits. Pt reports she had taken herself off all her medications for 1 year. During hospital stay patient was see by neurologist via telehealth. Quit smoking 10 years ago. Remote family history of heart disease. Had Echo 08/02/2021: Study quality: Technically difficult. LV chamber size is normal. LV wall thickness is mild to moderately increased. There is normal global systolic function and contractility. The estimated left ventricle ejection fraction is 55-60% (normal). Normal left atrial pressure with Grade 1 diastolic dysfunction. There is trace triscupid regurgitation. Had ECHO done in 01/22/19 showed normal global systolic function, EF 65-70% , LV relaxation is impaired. Left atrium chamber is mildly dilated. The aortic valve is mildly calcified. There is mild aortic root calcification. There is a dense posterior mitral annular calcification. There is mild tricuspid regurgitation. . Sinus bradycardia . Had Echo on 09/18/16 There is mild concentric left ventricular hypertrophy. Ejection fraction = 55-60%. Injection of contrast documented no interatrial shunt. Negative 2x bubble studies for right to left shunt. Highly mobile mass consistent with a torn or redundant chordae seen. There is mild mitral regurgitation. There is trace tricuspid regurgitation. No aortic stenosis. IVC appears normal in size. Grade I diastolic dysfunction, abnormal relaxation pattern. Had exercise nuclear stress test (03/29/2022): Positive stress test for ischemia. Normal LV systolic function. Abnormal stress test. Reversible defect consistent with ischemia in infero-septal area. Compared to last study in 08/07/2019 infero-septal reversible defects is now present. Exercise tolerance: Below Average. Had exercise nuclear stress test 08/07/19: negative for ischemia, LVEF >60%. Submaximal test, (82% MPHR). Had postive stress test on 11/20/16: Normal LV systolic function. Reversible defect consistent with old infarction in inferior area. Exercise tolerance is below average. LVEF 68%. Had CATH 12/03/16 : Two-vessel coronary artery disease with significant disease of the right coronary artery and diagonal branch of the left anterior descending however, the right coronary artery disease is moderate 60-75%. Consideration of PCI to RCA if medical management not adequate to control angina. Had 04/06/22 US, carotid artery:Antegrade flow noted in both vertebral arteries. Mild bilateral internal carotid artery stenosis with less than 50% diameter stenosis. Compared to last study in 09/17/2016 mild bilateral internal carotid artery stenosis is now noted. Had carotid artery ultrasound on 09/17/16: Normal carotid study bilaterally. Antegrade flow noted in bilateral vertebral arteries. Had Holter done 03/27/18 showed Normal sinus rhythm. Sinus tachycardia. Paroxysmal atrial fibrillation , Rare PVC's but not correlated with symptoms. Occasional PAC's but not correlated with symptoms. Reports fatigue and daytime somnolence. Results from this visit, or from the past: 05/19/2022LIPID-CHOL 159 HDL 45 TRIG 134 LDL 91CMP-GL 100 BUN 19 CR 0.95 NA 140 K 4.5 CA 9.7 MAG 2.0 TSH 2.80CBC-WBC 9.3 RBC 4.86 HGB 13.3 HCT 41.1 PLT 214 02/23/[id number]-0.7WB C 7.9 RBC 5.07 HGB 14.0 HCT 45.7 PLT 217MAG-1.9CMP-NA 139 K 3.9 GL 86 BUN 22 CR 1.11 CA 10.0LIPID-CHOL 156 HDL 42 LDL 85 TRIG 147TSH-2.13T4-9.2 03/18/19: LDL 54.4- LIPID: TC 156, TR 206, HDL 38, LDL 774- CMP: GLU 110, BUN 20, CR 0.8, NA 145, K 4.30, CL 103, Co2 28, ALT 20, AST 20 05/15/18: TC 130, TG 182,HDL 35 ,LDL 60,05/15/18: NA 143, K 4.1, CL 103 ,CO2 25, GLU 123, BUN 14, CR 0.92 ,AST 21,ALT 22,11/18/17 Lipid: TC 149, TR 228, LDL 83, HDL 346 CMP: SOD 141, K 4.6, CL 105, CO2 27, GL 91, BUN 25, CR 0.78, AST 17, ALT : NA: 141, K: 4.2, CL: 101, CO2: 27, GLU: 123, BUN: 19, AST: 23, ALT: 21, CR: 0.805: TSH: 4.55, free T4 0.99.10/24/17: WBC: 9.3, RBC: 4.50, HGB: 13.4, HCT: 39.0, PLT: 220 12/03/16 Na 140,K 4.0 ,CL 102, CO2 23 ,GLU 172 ,BUN 13 ,CR 0.7012/03/16 : PT 12.9,INR 0.96,PTT 30.12/03/16: HB 13.2, HT 38.7011/06/16: SOD 143, K 3.7, CL 100, CO2 27, GL 121, BUN 18, CR 1.1, AST 15, ALT 18.11/06/16: HGB 13.7, HCT 41.0 06-14-21 Sinus rhythm, P; normal, QRS; marked left axis deviation, ST-T; normal , conclusion:08/24/20 EKG: PRW08/19/2019 EKG: NSREK11/17/18 Left axis deviation.EKG 05/21/18 ; Left anterior hemiblock.EKG 01/22/18 : Incomplete RBBB LEft axis deviationEKG 10/24/17: Normal sinus rhythm. Poor R progression. NSST changes. When compared with ECG of 11/06/16, No significant change was foundEKG 06/14/17 : Left axis deviationEK11/06/16 Normal sinus rhythm. Left axis deviation. Abnormal ECG. When compared with ECG of 16-SEP-2016 QT has lengthened. Holter 11/30/16 : NSR. No PVC's. Rare PAC's. Holter Monitor 03/27/18 : Normal sinus rhythm. Sinus tachycardia. Paroxysmal atrial fibrillation (brief run up to 150 bpm). Rare PVC's but not correlated with symptoms. Occasional PAC's but not correlated with symptoms. 04/06/22 Cartoid Antegrade flow noted in both vertebral arteries. Mild bilateral internal carotid artery stenosis with less than 50% diameter stenosis. Compared to last study in 09/17/2016 mild bilateral internal carotid artery stenosis is now noted. Had exercise nuclear stress test 08/07/19: negative for ischemia, LVEF >60%. Submaximal test. Treadmill Nuclear Stress Test 11/20/16 : Positive stress test. Normal LV systolic function. Reversible defect consistent with old infarction in inferior area Exercise t Had Echo 08/02/2021: Study quality: Technically difficult. LV chamber size is normal. LV wall thickness is mild to moderately increased. There is normal global systolic function and contractility. The estimated left ventricle ejection fraction is 55-60% (normal). Normal left atrial pressure with Grade 1 diastolic dysfunction. There is trace triscupid regurgitation. Had ECHO done in 01/22/19 showed normal global systolic function, EF 65-70% , LV relaxation is impaired. Left atrium chamber is mildly dilated. The aortic valve is mildly calcified. There is mild aortic root calcification. There is a dense posterior mitral annular calcification. There is mild tricuspid regurgitation. . Sinus bradycardia . ECHO 09/18/16: ECHO: 09/18/16 There is mild concentric left ventricular hypertrophy. Ejection fraction = 55-60%. Injection of contrast documented no interatrial shunt. Negative 2x bubble studies for right to left shunt. Highly mobile mass consistent with a torn or redundant chordae seen. There is mild mitral regurgitation. There is trace tricuspid regurgitation. No aortic stenosis. IVC appears normal in size. Grade I diastolic dysfunction, abnormal relaxation pattern. CAROTID 09/17/16: Normal carotid study bilaterally. Antegrade flow noted in bilateral vertebral arteries. C XRAY 09/16/16: No acute pulmonary abnormality. CATH 12/03/16 : Two-vessel coronary artery disease with significant disease of the right coronary artery and diagonal branch of the left anterior descending however , the right coronary artery disease is moderate 60-75% . Myocardial Perfusion Study 08/07/19:Negative stress test for ischemia,normal LV systolic function,artifact noted,abnormal stress test , LVEF >60%. 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 [facility] [place], [place] - [facility] 05/30/2022 12:29:19 OBGyn Episode No OBEpisode recorded.
--- OUTSIDE RECORDS SUMMARY | 2024-09-17 13:13 | XMS_ITS | Clinical Summary ---
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 12/31/2022 Paroxysmal atrial fibrillation 12/31/2022 Obesity (BMI 35.0-39.9 without comorbidity) 12/09 Immunizations Immunization Administration Dates Next Due DT 01/12/1995 Influenza, Trivalent, Preservative Free, Intramu scular 02/12/1997 Surgical History Surgery Date Site/Laterality Comments [place] SEPTOPLASTY/SUBMUCOUS RES ECJ W/WO CARTILAGE GRF Septoplasty - (Added by TW Conv) [place] NEUROPLASTY &/TRANSPOS MEDIAN NRV CARPAL TUNNE Neuroplasty Decompression Median Nerve At Carpal Tunnel - (Added by TW Conv) Social History Tobacco Use Types Packs/Day Years [...] on file Legal Sex Female 7:43 AM SKIRT MAKER Gender Identity Not on file Sexual Orientation Not on file Obstetrics History Last Filed Vital Signs Vital Sign Reading Time Taken Comments Blood Pressure 134/76 05/18/2024 3:15 PM SKIRT MAKER Pulse 71 05/18/2024 3:15 PM SKIRT MAKER Temperature 36.8 C (98.2 F) 03/29/2023 11:14 AM CDT Respiratory Rate 16 03/29/2023 11:14 AM CDT Oxygen Saturation 98% 04/24/2023 9:47 AM SKIRT MAKER Inhaled Oxygen Concentration - - Weight 89.2 kg (196 lb 9.6 oz) 05/18/2024 3:15 P M SKIRT MAKER Height 165.1 cm (5' 5 ) 05/18/2024 3:15 PM SKIRT MAKER Body Mass Index 32.72 05/18/2024 3:15 PM SKIRT MAKER Plan of Treatment Health Maintenance Due Date Last Done Comments Breast Cancer Screening-Mammogram 1961 Cervical Cancer Screening 1961 Colon Cancer Screening-Colonoscopy 1961 Depression Screening 1961 Hepatitis C Screening 1961 Hepatitis B Screening 1979 Regular Well Visit/Exam 18-64 1979 Pneumococcal vaccine <65 (1 of 2 - PCV) 1980 Zoster Vaccine (1 of 2) 2011 Covid-19 Vaccine (2023-2 5 season) 2024 04/24/2022, 11/28/2021, 05/27/2021, Additional history exists Influenza Vaccine (Season Ended) 2025 04/09/2020, 05/24/2018, 02/12/1997 DTaP/Tdap/Td Vaccine (3 - Td or Tdap) 02/15/2032 02/14/2022, 01/12/1995 Medical Devices Implanted Type Area Insole Presser Device Identifier Shelf Expiration Date Model / Serial / Lot Medtronic Card Vasc Surgery 3.0 X 12mm [place] Rx Coronary Stent [id number] - [id number] Implanted:Qty: 1 on 03/28/2023 by Los Cole MD at [facility] Medtronic Card Vasc Surgery 02/11/2026 [id number] / / [id number] Together Mobile Siva Angio-Seal Vip 6fr Closere Device [id number] - [id number] Implanted:Qty: 1 on 03/28/2023 by Los Cole MD at [facility] [employer] [facility] 09/08/2023 [id number] / / [id number] Insurance [facility] Advance Directives For more information, please contact: [phone] * Full Code (Latest Code Status on File) Date Activated Date Inactivated Comments 03/28/2023 12:36 PM 03/29/2023 6:40 PM Care Teams Plastic Installer Relationship Specialty Start Date End Date Becky Mccarthy MD [address] [place] [address] PCP - General Internal Medicine 09/20/22 Alok Andrew MD [address] [place] [address] Referring Physician Ophthalmology 11/06/23
--- OUTSIDE RECORDS SUMMARY | 2024-09-17 13:13 | XMS_ITS | Clinical Summary ---
Author Organization [facility] Address [address] [place] [address] Care Team Providers Care Process Worker Name Role Phone Unavailable Primary Care Provider Unavailabl e Source Comments [facility],non-owned Affiliates and Associated Physician Practices is amultiple site organization consisting of ambulatory clinics and hospital sitesin [place], [place], [place] and [place]. This disclosure is being madepursuant to the Care Everywhere program and may not contain all information available regarding this patient. Last updated 18.[facility] Social History Tobacco Use Types Packs/Day Years Used Date Smoking Tobacco: Never Assessed Sex and Gender Information Value Date Recorded Sex Assigned at Not on file Gender Identity Not on file Sexual Orientation Not on file Plan of Treatment Health Maintenance Due Date Last Done Comments COLOGUARD (AGES 45-75) - COL ON CA SCREENING 1961 COLON MONITORING 1961 COLONOSCOPY - COLON CA SCREENING 1961 CT COLONOGRAPHY - COLON CA SCREENING 1961 Colorectal Cancer Screening 1961 FIT - COLON CA SCREENING 1961 FLEX SIG - COLON CA SCREENING 1961 LIPID TESTING 1961 MAMMOGRAM 1961 PAP SMEAR 1961 HIV SCREENING 1976 HEPATITIS C SCREENING 03/03/1979 DTAP/TDAP/TD VACCINES (1 - Tdap) 1980 PNEUMOCOCCAL VACCINE 50+ (1 of 1 - PCV) 2011 ZOSTER VACCINE (1 of 2) 2011 COVID-19 VACCINE ( - 2023-2 5 season) 2024 DEPRESSION SCREENING 06/10/2024 INFLUENZA VACCINE (Season Ended) 2025 Respiratory Syncytial Virus (RSV) Vaccine Pt: or over 60 yrs (1 - 1-dose 75+ series) 2036 HEPATITIS B VACCINE Aged Out No longe r eligible based on patient's age to complete this topic HIB VACCINE Aged Out No longer eligi ble based on patient's age to complete this topic HPV VACCINE Aged Out No longer eligi ble based on patient's age to complete this topic MENINGOCOCCAL (Group B) VACC INE SHARED DECISION-MAKING Aged Out No longer eligibl e based on patient's age to complete this topic MENINGOCOCCAL GROUPS A/C/Y/W VACCINE Aged Out No longer eligible b ased on patient's age to complete this topic PNEUMOCOCCAL VACCINE Aged Out No long er eligible based on patient's age to complete this topic
[2024-09-17] MEDS: oxyCODONE/ACETAMINOPHEN (*CRX) 5-325 MG TABLET 1 TABLET PO (14:38)
[2024-09-17 14:40] VITALS: BP 119/70; PULSE 75; RESP 16; TEMP 36.6; O2SAT 100
--- NOTE | 2024-09-17 14:42 | ED.GENADULT ---
HPI - General Adult General Chief complaint: Epistaxis Stated complaint: NOSEBLEED Time Seen by Provider: 09/17/24 12:48 History of Present Illness HPI narrative: This is a 64-year-old female on Eliquis presenting for a nosebleed. Nosebleed started overnight. She has been unable to control it with direct pressure. She denies digital trauma, history of recurrent nose bleeds. Related Data Allergies Allergy/AdvReac Type Severity Reaction Status Date / Time allantoin (From Orajel) Allergy Swelling Verified 02/10/23 08:03 benzalkonium chloride (From Allergy Swelling Verified 02/10/23 08:03 Orajel) benzocaine (From Orajel) Allergy Swelling Verified 02/10/23 08:03 carbamide peroxide (From Allergy Swelling Verified 02/10/23 08:03 Orajel) tramadol Allergy Depression Verified 02/10/23 08:03 zinc chloride (From Orajel) Allergy Swelling Verified 02/10/23 08:03 PMFSH Past Medical History Medical History Hyperlipidemia Diabetes Hypertension Family History Family History Father Hyperlipemia Hypertension Heart disease Cerebrovascular accident Other Hyperlipemia Hypertension Heart disease Acute myocardial infarction Grandparent Diabetes mellitus Social History Social History Smoking packs per day: 0.25 Smoking cigarettes per day: 5.0 Years smoked: 25 Smoking pack-years: 6.25 Smoking status: Former smoker Tobacco type: cigarettes Second hand tobacco smoke exposure: No Exam Narrative: APPEARANCE: No apparent distress. Head: atraumatic. EYES: EOMI, NOSE: Bleeding from the right naris, too much blood to visualize the lesion NECK: Trachea midline RESPIRATORY: No increased rate of breathing CARDIOVASCULAR: RRR, ABDOMINAL: Non-distended MUSCULOSKELETAl: No obvious deformities NEURO: Alert. Moving 4/4 extremities SKIN:: Warm, dry. Normal color PSYCHIATRIC: Normal affect Course Vital Signs Vital signs: Vital Signs Temperature 98.3 F 09/17/24 12:01 Pulse Rate 76 09/17/24 12:01 Respiratory Rate 16 09/17/24 12:01 Blood Pressure 151/83 H 09/17/24 12:01 Pulse Oximetry 98 09/17/24 12:01 Oxygen Delivery Room Air 09/17/24 12:01 Temperature 98 F 09/17/24 14:40 Pulse Rate 75 09/17/24 14:40 Respiratory Rate 16 09/17/24 14:40 Blood Pressure 119/70 09/17/24 14:40 Pulse Oximetry 100 09/17/24 14:40 Oxygen Delivery Room Air 09/17/24 12:01 Procedures Epistaxis Control right: Epistaxis Control Date: 09/17/24 Nose Prepped With: lidocaine and oxymetazoline Direct Inspection: yes and unable to visualize Clots Removed by: blowing nose Cautery Used: none Device Inserted: hemostatic balloon Device Size: 7 Patient Tolerated Procedure: well Medical Decision Making MDM Narrative Medical decision making narrative: -Course: 64-year-old female on Eliquis presenting for epistaxis. Unable to visualize lesion due to profuse bleeding. Attempted Afrin with direct pressure which was unsuccessful. Patient was given lidocaine with epi via atomizer and a hemostatic balloon was placed in the right Fuller with control of the bleeding. Patient will be given follow-up with ENT. Given return precautions. Vital Signs Vital Signs: Vital Signs Temperature 98.3 F 09/17/24 12:01 Pulse Rate 76 09/17/24 12:01 Respiratory Rate 16 09/17/24 12:01 Blood Pressure 151/83 H 09/17/24 12:01 Pulse Oximetry 98 09/17/24 12:01 Oxygen Delivery Room Air 09/17/24 12:01 Temperature 98 F 09/17/24 14:40 Pulse Rate 75 09/17/24 14:40 Respiratory Rate 16 09/17/24 14:40 Blood Pressure 119/70 09/17/24 14:40 Pulse Oximetry 100 09/17/24 14:40 Oxygen Delivery Room Air 09/17/24 12:01 Discharge Plan Discharge Clinical Impression: Epistaxis Patient Disposition: Home Condition: Stable Instructions: Antibiotic Form, Nosebleed (ED) Additional Instructions: Please call the ENT listed below and schedule follow-up in the next 48-72 hours. Please do not blow your nose. Please return to the ED if you develop severe bleeding are you are unable to arrange follow-up with the ENT. Patient Language: Vincentian Prescriptions: No Action amoxicillin-pot clavulanate 875-125 mg tablet 1 tablet PO Q12H Qty: 20 0RF oxycodone-acetaminophen [Percocet] 5-325 mg tablet 1 tablet PO Q6H PRN (Reason: pain) Qty: 10 0RF Follow-up/Referrals: Shari,Becky Ruth MD [Primary Care Provider] - Len Quiñones MD [Physician] - 2 Days (Epistaxis w/ packing)
--- NOTE | 2024-09-17 14:43 | PC.NURSE ---
Pt found laying on the floor in ED RM 17. Pt states, I did not fall, I willingly put myself down here. Pt expressed concern for reaction to lidocaine, her reaction was screaming. Vitals were reassessed and were within normal limits. EDP Dr. Clark notified, EDP at bedside stating he was going to give her pain medication and then discharge her. Pt verbalized understanding. When this RN administered PO pain medication, pts Ava hernandez began to bleed again. EDP Dr. Clark notified, stated to monitor the bleeding.
== END 2024-09-17 15:23 | disposition home or self-care (01) ==
PROVIDERS: Emergency Provider Emergency Medicine; PCP Internal Medicine
DX: R04.0 Epistaxis (principal); I10 Essential (primary) hypertension; E78.5 Hyperlipidemia, unspecified; E11.9 Type 2 diabetes mellitus without complications; Z87.891 Personal history of nicotine dependence; Z79.01 Long term (current) use of anticoagulants
CPT/HCPCS: 30901; 99283; A9270; J2004